=== PATIENT | female | born 1960 | race Hispanic/Latino ===

== ENCOUNTER 2018-09-14 02:35 | Inpatient (IN) | payer SELFPAY ==
[2018-09-14] MEDS ORDERED: Magnesium 2 GM/50 ML BAG (IN WATER) ONE (02:52)
[2018-09-14] MEDS ORDERED: Nitroglycerin 2% Ointment 1 INCH/1 GM Packet ONE (02:59)
[2018-09-14] MEDS ORDERED: Aspirin Chewable 81 MG TAB ONE (03:04)
[2018-09-14 03:09] LABS: Actual Bicarbonate (HCO3a) 21.5 mEq/L (22-28); Analyzer IN Cardio ER; Base Excess (BEa) -3.7 mEq/L (-2.0 to +3.0); CO2 Tension 39.4 mmHg (35.0-45.0); Calcium, Ionized 1.15 mmol/L (1.12-1.30); Carboxyhemoglobin (COHb) 0.3 gm% (0.0-3.0); Hemoglobin (Hb) 10.1 g/dL (12.0-16.0); O2 Tension (PaO2) 78.4 mmHg (> 80.0); Potassium - ABG Lab 2.54 mmol/L (3.70-5.30); pH, Arterial 7.35 (7.35-7.45)
[2018-09-14 03:10] LABS: Puncture Site RBA
[2018-09-14 03:28] LABS: ALT (SGPT) 32 U/L (8-55); AST (SGOT) 44 U/L (5-34); Albumin 3.1 g/dL (3.5-5.0); Alkaline Phosphatase 104 U/L (40-150); Anion Gap 17 mmol/L (10-20); BUN (Urea Nitrogen) 15 mg/dL (9.8-20.1); Bilirubin, Total 0.5 mg/dL (0.2-1.2); Calc. Creatinine Clearance 0 mL/min (70-130); Carbon Dioxide 20 mmol/L (22-29); Chloride 109 mmol/L (98-107); Estimated GFR-MDRD 46; Glucose 268 mg/dL (70-105); Lipase 13 U/L (8-78); Protein, Total 6.1 g/dL (6.0-8.3); Sodium 143 mmol/L (136-145)
[2018-09-14 03:43] LABS: Potassium 2.8 mmol/L (3.5-5.1)
[2018-09-14] MEDS ORDERED: Potassium Chloride 20 MEQ TAB ONE (04:01)
[2018-09-14 04:04] LABS: Hemoglobin 9.5 g/dL (12.0-16.0); Mean Corpuscular Hemoglobin 35.3 pg (27.0-31.0); Mean Platelet Volume 8.2 fL (7.4-10.4); Platelet Count 279 thou/uL (130-400); RBC Distribution Width 17.8 % (11.5-14.5); Red Blood Cell (RBC) Count 2.69 mill/uL (4.20-5.40); White Blood Cell (WBC) Count 11.1 thou/uL (4.8-10.8)
[2018-09-14 04:10] LABS: #Basophils 0.1 thou/uL (0.0-0.2); #Eosinphils 0.2 thou/uL (0.0-0.7); #Lymphocytes 4.9 thou/uL (1.20-3.40); #Monocytes 0.7 thou/uL (0.11-0.59); #Neutrophils 5.2 thou/uL (1.40-6.50); %Eosinophils 1.5 % (0.0-10.0); %Lymphocytes 44.2 % (21.0-51.0); %Monocytes 6.5 % (0.0-10.0); %Neutrophils 46.8 % (42.0-75.0); Anisocytosis SLIGHT = 6-15 cells (100X) (0-5/hpf); MDiff Complete? YES; Macrocytosis MODERATE=16-30 cells (100X) (0-5/hpf); Platelet Morphology Comment Appears Adequate
[2018-09-14] MEDS ORDERED: Potassium Chloride 40 MEQ in Sodium Chloride 0.9% 250 ML 250 ML IVPB SCH (04:15)
[2018-09-14] MEDS ORDERED: Acetaminophen 325 MG TAB PO PRN (05:26)
[2018-09-14] MEDS ORDERED: hydrALAZINE 20 MG/ML VIAL SLOW IVP PRN (05:28)
[2018-09-14] MEDS ORDERED: Nitroglycerin 2% Ointment 1 INCH/1 GM Packet TOP PRN (05:30)
[2018-09-14] MEDS ORDERED: Furosemide 40 MG/4 ML VIAL SLOW IVP SCH (05:30)
[2018-09-14] MEDS ORDERED: Furosemide 40 MG/4 ML VIAL ONE (05:31)
[2018-09-14] MEDS ORDERED: Dextrose 5% in Water 1,000 ML IV PRN (05:34)
[2018-09-14] MEDS ORDERED: Dextrose 50% Abboject 50 ML SYRINGE SLOW IVP PRN (05:34)
[2018-09-14 06:00] VITALS: BMI 34.2
[2018-09-14] MEDS ORDERED: Nitroglycerin 0.4 MG TAB (25 Tab Bottle) SL PRN (06:51)
[2018-09-14] MEDS ORDERED: Artificial Tears 18 DROP/0.9 ML EA EYE PRN (06:51)
[2018-09-14] MEDS ORDERED: Cepastat Lozenges 1 LOZ PO PRN (06:51)
[2018-09-14] MEDS ORDERED: Loperamide HCl 2 MG CAP PO PRN (06:51)
[2018-09-14] MEDS ORDERED: Ondansetron PF 4 MG/2 ML Vial IVP PRN (06:51)
[2018-09-14] MEDS ORDERED: Calcium Carbonate 500 MG ChewTAB PO PRN (06:51)
[2018-09-14] MEDS ORDERED: Ondansetron ODT 4 MG TAB PO PRN (06:51)
[2018-09-14] MEDS ORDERED: Loratadine 10 MG TAB PO PRN (06:51)
[2018-09-14] MEDS ORDERED: Zolpidem Tartrate 5 MG TAB PO PRN (06:51)
[2018-09-14] MEDS ORDERED: Senokot S 8.6-50 MG TAB PO PRN (06:51)
[2018-09-14] MEDS ORDERED: Eucerin (Mineral Oil/Petrolatum,White) 30 gm Jar TOP PRN (06:51)
[2018-09-14] MEDS ORDERED: Sodium Chloride 0.65% Nasal 44 ML BOT EA NARE PRN (06:51)
[2018-09-14] MEDS ORDERED: Diabetic Tussin 200 MG/10 ML UDCUP PO PRN (06:51)
[2018-09-14] MEDS: Carvedilol 3.125 MG TAB PO SCH ×2 (06:55→16:27)
--- NOTE | 2018-09-14 07:12 | HP ---
CHIEF COMPLAINT: Shortness of breath. HISTORY OF PRESENT ILLNESS: This patient is a 58-year-old female with a history of diabetes, hypertension, hyperlipidemia, and who was a former smoker, who reports a 2-week history of shortness of breath. The patient describes baseline shortness of breath, but more significantly dyspnea on exertion. Over the past 2 weeks, she has had orthopnea, edema, but no specific cough. She has been having some chest pains over the last week, but primarily associated with exertion and shortness of breath. She denies having any antecedent type of viral or febrile illness. She is unaware of having any prior history of heart problems or cardiac evaluation. She does report that she has significantly elevated blood pressure, although she does not have a PCP. She has been told in the past, her blood pressure was problematic. She indicates that it is not uncommon for her to have blood pressure readings over 200 at home. REVIEW OF SYSTEMS: She reports diminished appetite over the last 2 weeks along with these other symptoms. Other than that all systems were reviewed and all pertinent positives and negatives noted in the history of present illness. PAST MEDICAL HISTORY: Diabetes, hypertension, and hyperlipidemia. PAST SURGICAL HISTORY: Appendectomy and cholecystectomy. FAMILY HISTORY: She is unaware of any history related to her father. Her mother had diabetes. SOCIAL HISTORY: The patient smoked 2 packs of cigarettes per week, but quit 4 years ago. She denies alcohol or drugs. She is . She is full code and her would be her surrogate decision maker. CURRENT MEDICATIONS: 1. Metformin 500 mg b.i.d. 2. Amlodipine 10 mg 2 p.o. daily. 3. Hydrochlorothiazide 25 mg daily. 4. Simvastatin 40 mg daily. 5. Aspirin 81 mg daily. ALLERGIES: NONE. PHYSICAL EXAMINATION: VITAL SIGNS: Blood pressure in the emergency room initially was 196/104, at the time she left the emergency department was 139/90; pulse 86; respirations 30; temperature 97.6; and O2 saturation 100% on BiPAP, the patient was initially at 90 on BiPAP in the ED. GENERAL APPEARANCE: Age-appropriate female. She indicates she is feeling some better wearing the BiPAP. She is awake and alert, pleasant, conversant. HEENT: PERRL. No OP lesions. NECK: Supple and symmetric. HEART: Regular. No murmurs. Borderline tachycardic. LUNGS: Slightly diminished at the bases with no wheezes or rales noted. ABDOMEN: Soft, nontender, and nondistended. Positive bowel sounds. No masses. No organomegaly. EXTREMITIES: There is 1+ to 2+ pitting edema of the feet and ankles to the mid calf area. Pulses are diminished because of the edema present. NEUROLOGIC: She appears to be fully intact with spontaneous movement of all extremities cognitively appropriate. PSYCHOLOGICAL: The patient has normal affect and behavior. LABORATORY DATA: White count 11.1, hemoglobin 9.5, platelets 279, and MCV is 107 with significant macrocytosis. Sodium 143, potassium 2.8, chloride 109, CO2 is 20, BUN is 15, creatinine is 1.19, GFR is 46, glucose 268, anion gap is 17, AST 44, ALT is 32. BNP is 789.6. Troponin less than 0.01. Albumin 3.1. Chest x-ray shows pulmonary edema. CT of the chest shows pulmonary edema along with a significant bilateral pleural effusions. CT scan of the abdomen and pelvis primarily reveals significant atherosclerotic disease. Again official reads are pending on all of those. ABG shows a pH of 7.35, pCO2 of 39, and pO2 of 78.4 while on BiPAP. IMPRESSION AND PLAN: 1. Acute hypoxic respiratory failure requiring BiPAP. The patient appears to have bilateral pleural effusions and pulmonary edema as the underlying source. 2. Pulmonary edema appears to be exacerbation of new onset congestive heart failure, diuresing. 3. Bilateral pleural effusions, as above diuresing. 4. New onset congestive heart failure. The etiology is unclear, although suspect the patient likely has some type of hypertensive cardiomyopathy. We will obtain an echocardiogram and Cardiology consult. The patient certainly has significant risk factors for coronary artery disease including hypertension, hyperlipidemia, diabetes, and history of smoking. She also has significant evidence of atherosclerotic disease of the aorta down into the iliacs on her CT abdomen. We will go ahead and start the patient on nitroglycerin paste, give a dose of IV Lasix and start lisinopril and metformin. 5. Hypertension. The patient has severe hypertension. It was better in the ER, now it is back up as she is arriving in the [facility], may be simply the stress of getting her move from one location to the other. Nonetheless, giving IV hydralazine, starting carvedilol and lisinopril and giving Lasix now along with an inch of nitroglycerin paste. 6. Leukocytosis, mild, unclear etiology, may simply be some demargination due to the acute exacerbation of her respiratory situation. We will continue to monitor. 7. Macrocytic anemia. We will check B12 and folate levels. 8. Significant hypokalemia of unclear etiology. She has received 40 mg of IV and 40 mg p.o. initiated in the emergency department. We will continue to monitor closely. 9. Acute renal insufficiency. The patient does not have prior labs here for comparison. Her current GFR is at 46, putting her at stage 3 kidney disease, unclear how chronic this is, but suspect it likely is chronic given her diabetes and hypertension. We will monitor. 10. Diabetes mellitus. The patient's glucose was 268. It is unclear what her baseline status is. We will check A1c. 11. Elevated liver enzyme, likely due to some passive liver congestion or possibly fatty liver from diabetes. We will need to monitor that and potentially consider ultrasound if the labs do not significantly improve. 12. Hyperlipidemia. Continue with simvastatin. Job ID: [id number]
--- NOTE | 2018-09-14 07:24 | CT ---
PRELIMINARY REPORT/[facility]/EMERGENCY AFTER HOURS PROCEDURE: EXAM: CT Angiography Chest With Contrast EXAM DATE/TIME: 09/14/2018 3:43 AM CLINICAL HISTORY: 58 years old, female; Signs and symptoms; Shortness of breath; Patient HX: 58yo F with h/o dm and HTN presenting for sob/cervantes/ orthopnea that has been worsening over the past week. Patient states she has been having cp for the past 1-2 weeks as well. Cough started today. No h/o copd/asthma/ chf. TECHNIQUE: Imaging protocol: Axial computed tomographic angiography images of the chest with intravenous contrast using CT angiography protocol. 3D rendering: MIP reconstructed images were created and reviewed. COMPARISON: No relevant prior studies available. FINDINGS: Pulmonary arteries: No evidence of pulmonary embolism. Aorta: No acute findings. No aortic aneurysm or dissection. Lungs: Bilateral upper and middle lobe predominantly groundglass and lower lobe groundglass and consolidative airspace opacities. There is also septal and peribronchial thickening. Pleural space: Bilateral loculated pleural effusions and adjacent atelectasis. No pneumothorax. Heart: No significant cardiomegaly. Coronary calcifications. Small pericardial effusion. Lymph nodes: No significant adenopathy. Bones/joints: No acute fracture. Soft tissues: Edema. IMPRESSION: Bilateral airspace opacities could relate to pulmonary edema, pneumonia. Bilateral pleural effusions. Coronary calcifications. No evidence of pulmonary embolism. Other findings above. Thank you for allowing us to participate in the care of your patient. Dictated and Authenticated by: Carlos Silverman MD 09/14/2018 4:39 AM Central Time ([place] & [place]) FINAL REPORT EMERGENCY AFTER HOURS CT ANGIOGRAM CHEST WITH 3D RENDERING: Date: 09/14/18 Time: 0345 hours IMPRESSION: Moderate bilateral pleural effusions and fairly extensive diffuse bilateral alveolar airspace opaciti es, which could represent edema and/or bilateral pneumonia. No convincing CT evidence for acute pulmonary embol ism. This report is in agreement with a preliminary report given by Gonzalo. Transcribed Date/Time: 09/14/2018 7:57 AM
--- NOTE | 2018-09-14 07:30 | RAD ---
XR Chest 1 View Portable History: [Shortness of breath] Comparison: None Findings: Moderate effusions. Moderate pulmonary edema. No pneumothorax. No acute osseous abnormality. Heart size upper limits of normal. Large layering effusions. Impression: Large effusion, pulmonary edema and heart size at the upper limits of normal.
--- NOTE | 2018-09-14 07:37 | CT ---
PRELIMINARY REPORT/[facility]/EMERGENCY AFTER HOURS PROCEDURE: EXAM: CT Abdomen and Pelvis With Contrast EXAM DATE/TIME: 09/14/2018 3:43 AM CLINICAL HISTORY: 58 years old, female; Abdominal pain; Epigastric; Patient HX: 58yo F with h/o dm and HTN presenting for sob/cervantes/ orthopnea that has been worsening over the past week. Patient states she has been having cp for the past 1-2 weeks as well. Cough started today. No h/o copd/asthma/ chf. TECHNIQUE: Imaging protocol: Axial computed tomography images of the abdomen and pelvis with intravenous contrast. COMPARISON: No relevant prior studies available. FINDINGS: Lower chest: Refer to same day CT chest. ABDOMEN: Liver: No acute findings. No mass. Gallbladder and bile ducts: Status post cholecystectomy with central biliary prominence. Pancreas: No acute findings. No mass. No ductal dilation. Spleen: No acute findings. No mass. Adrenals: No acute findings. No mass. Kidneys and ureters: No mass. No hydronephrosis. Mild perinephric fluid. Stomach and bowel: Ascending, transverse and descending colon wall thickening/colitis. No evidence of bowel obstruction. Diverticulosis. Appendix: Appendix is not discretely visualized from the bowel loops within the right lower quadrant. PELVIS: Bladder: No acute findings. Reproductive: No acute findings. ABDOMEN and PELVIS: Intraperitoneal space: No free air. No significant fluid collection. Bones/joints: No acute fracture. Soft tissues: Edema. Vasculature: Atherosclerotic calcifications. No aortic aneurysm. Lymph nodes: No significant lymphadenopathy. IMPRESSION: Colitis. Thank you for allowing us to participate in the care of your patient. Dictated and Authenticated by: Carlos Silverman MD 09/14/2018 4:52 AM Central Time ([place] & [place]) FINAL REPORT EMERGENCY AFTER HOURS ABDOMEN AND PELVIC CT SCAN WITH IV CONTRAST: Date: 09/14/18 Time: 0346 hours IMPRESSION: There is colonic wall thickening, most marked in the right colon and transverse colon, evidence for n onspecific colitis. Diverticulosis without acute diverticulitis. Prominent bilateral pleural effusions and bibasilar pulmonary parenchymal changes. No abscess or abnormal fluid collection. Agree with preliminary report from [facility]. Transcribed Date/Time: 09/14/2018 8:01 AM
[2018-09-14] MEDS ORDERED: metFORMIN 500 MG TAB PO SCH (08:00)
[2018-09-14 08:49] LABS: #Lymphocytes 0.9 thou/uL (1.20-3.40); #Monocytes 0.2 thou/uL (0.11-0.59); #Neutrophils 10.6 thou/uL (1.40-6.50); %Basophils 0.3 % (0.0-1.0); %Eosinophils 0.3 % (0.0-10.0); %Lymphocytes 7.8 % (21.0-51.0); %Monocytes 1.8 % (0.0-10.0); %Neutrophils 89.9 % (42.0-75.0); Hemoglobin 9.4 g/dL (12.0-16.0); Mean Corpuscular HGB CONC 32.8 g/dL (32.0-36.0); Mean Corpuscular Hemoglobin 34.5 pg (27.0-31.0); Mean Platelet Volume 8.5 fL (7.4-10.4); Platelet Count 263 thou/uL (130-400); RBC Distribution Width 17.7 % (11.5-14.5); Red Blood Cell (RBC) Count 2.72 mill/uL (4.20-5.40); White Blood Cell (WBC) Count 11.8 thou/uL (4.8-10.8)
[2018-09-14 08:52] LABS: Prothrombin Time 13.3 SEC (12.0-14.7)
[2018-09-14 08:53] LABS: PTT 30.5 SEC (22.9-36.1)
[2018-09-14] MEDS ORDERED: Cyanocobalamin (Vitamin B-12) 1,000 MCG TAB PO SCH ×2 (09:00→11:16)
[2018-09-14] MEDS ORDERED: Lisinopril 5 MG TAB PO SCH (09:00)
[2018-09-14] MEDS ORDERED: Enoxaparin Sodium 40 MG/0.4 ML SYRINGE SC SCH ×2 (09:00)
[2018-09-14 09:03] LABS: Hemoglobin A1c 5.8 % (4.0-6.0)
[2018-09-14] MEDS: Aspirin 81 mg Enteric Coated Tablet PO SCH (09:17)
[2018-09-14] MEDS: Folic Acid 1 MG TAB PO SCH (09:17)
[2018-09-14] MEDS: Lisinopril 5 MG TAB PO SCH ×2 (09:17→19:57)
[2018-09-14 09:19] LABS: Troponin I 0.306 ng/mL (< 0.028)
[2018-09-14 09:39] LABS: Vitamin B12 Less than 109 pg/mL (211-911)
[2018-09-14] MEDS ORDERED: ISOVUE-370 76%-LOCM 1 ML ONE (10:44)
[2018-09-14 11:29] LABS: Troponin I 0.378 ng/mL (< 0.028)
[2018-09-14] MEDS ORDERED: Cyanocobalamin 1000 MCG/ML VIAL IM SCH (11:30)
[2018-09-14] MEDS: HumaLOG 300 UNITS/3 ML VIAL SC PRN (11:43)
--- NOTE | 2018-09-14 12:20 | PDOC.PN ---
- Subjective Encounter Start Date: 09/14/18 Encounter Start Time: 10:30 -: old records requested/rev Patient seen and examined. pt feels much better, less dyspnea, no chest pain. No overnight events - Objective Resuscitation Status - Order Detail: 09/14/18 05:26 Resuscitation Status Routine Resuscitation Status: FULL: Full Resuscitation MAR Reviewed: Yes Vital Signs & Weight: Vital Signs (12 hours) Temp Pulse Resp BP Pulse Ox 09/14/18 11:06 97.6 F 09/14/18 09:17 89 09/14/18 08:00 96 09/14/18 07:15 98.6 F 09/14/18 06:17 89 09/14/18 06:04 89 24 H 198/124 H 100 09/14/18 05:25 224/124 H Weight Admit Weight 158 lb 8 oz Weight 158 lb 8 oz Most Recent Monitor Data Heart Rate from ECG 83 NIBP 162/96 NIBP BP-Mean 118 Respiration from ECG 19 SpO2 98 I&O: 09/13/18 09/14/18 09/15/18 06:59 06:59 06:59 Output Total 700 Balance -700 Result Diagrams: 09/14/18 08:28 09/14/18 02:54 Additional Labs: Accuchecks 09/14/18 10:32 POC Glucose 264 H Radiology Reviewed by me: Yes EKG Reviewed by me: Yes Phys Exam - Physical Examination Constitutional: NAD HEENT: PERRLA, moist MMs, sclera anicteric Neck: no JVD, supple Respiratory: no wheezing, no rhonchi basal rales, reduced air entry Cardiovascular: RRR, no significant murmur, no rub Gastrointestinal: soft, non-tender, no distention, positive bowel sounds Musculoskeletal: no edema, pulses present Neurological: non-focal, normal sensation Lymphatic: no nodes Psychiatric: normal affect Skin: no rash, normal turgor Dx/Plan (1) Acute respiratory failure with hypoxemia Code(s): J96.01 - ACUTE RESPIRATORY FAILURE WITH HYPOXIA Status: Acute (2) Bilateral pleural effusion Code(s): J90 - PLEURAL EFFUSION, NOT ELSEWHERE CLASSIFIED Status: Acute (3) Hypokalemia Code(s): E87.6 - HYPOKALEMIA Status: Acute (4) New onset of congestive heart failure Code(s): I50.9 - HEART FAILURE, UNSPECIFIED Status: Acute (5) Pulmonary edema Code(s): J81.1 - CHRONIC PULMONARY EDEMA Status: Acute (6) Diabetes type 2, controlled Code(s): E11.9 - TYPE 2 DIABETES MELLITUS WITHOUT COMPLICATIONS Status: Chronic (7) Diverticulosis of colon Code(s): K57.30 - DVRTCLOS OF LG INT W/O PERFORATION OR ABSCESS W/O BLEEDING Status: Chronic (8) Dyslipidemia Code(s): E78.5 - HYPERLIPIDEMIA, UNSPECIFIED Status: Chronic (9) Hypertension Code(s): I10 - ESSENTIAL (PRIMARY) HYPERTENSION Status: Chronic (10) Macrocytic anemia Code(s): D53.9 - NUTRITIONAL ANEMIA, UNSPECIFIED Status: Chronic (11) Obesity (BMI 30.0-34.9) Code(s): E66.9 - OBESITY, UNSPECIFIED Status: Chronic - Plan cont current plan of care * continue lasix * add vitamin B12 and folic acid * cardiology consulted * medication reviewed as below * symptomatic treatment * continue low dose coreg, increase lisinopril * replace potassium, mag checked * will repeat labs tomorrow * echo pending * may need ischemic evaluation. Review of Systems - Review of Systems ENT: negative: Ear Pain, Ear Discharge, Nose Pain, Nose Discharge, Nose Congestion, Mouth Pain, Mouth Swelling, Throat Pain, Throat Swelling, Other Respiratory: SOB with Excertion. negative: Cough, Dry, Shortness of Breath, Hemoptysis, Pleuritic Pain, Sputum, Wheezing Cardiovascular: orthopnea. negative: chest pain, palpitations, paroxysmal nocturnal dyspnea, edema, light headedness, other Gastrointestinal: negative: Nausea, Vomiting, Abdominal Pain, Diarrhea, Constipation, Melena, Hematochezia, Other Genitourinary: negative: Dysuria, Frequency, Incontinence, Hematuria, Retention , Other Musculoskeletal: negative: Neck Pain, Shoulder Pain, Arm Pain, Back Pain, Hand Pain, Leg Pain, Foot Pain, Other Skin: negative: Rash, Lesions, Luis, Bruising, Other - Medications/Allergies Allergies/Adverse Reactions: Allergies Allergy/AdvReac Type Severity Reaction Status Date / Time No Known Allergies Allergy Verified 09/14/18 06:01 Medications: Current Medications Acetaminophen (Tylenol) 650 mg PO Q4H PRN PRN Reason: Headache/Fever/Mild Pain (1-3) Albuterol/Ipratropium (Duoneb) 3 ml NEB [id number] PRN PRN Reason: SOB &/or Wheezing Artificial Tears (Tears Naturale) 2 drop EA EYE PRN PRN PRN Reason: Dry Eyes Aspirin (Ecotrin) 81 mg PO DAILY [facility] Last Admin: 09/14/18 09:17 Dose: 81 mg Atorvastatin Calcium (Lipitor) 20 mg PO HS [facility] Calcium Carbonate (Tums) 1,000 mg PO Q4H PRN PRN Reason: Heartburn or Indigestion Carvedilol (Coreg) 3.125 mg PO BID-[facility] Last Admin: 09/14/18 06:55 Dose: 3.125 mg Cyanocobalamin (Vitamin B-12) 1,000 mcg IM NOW [facility] Stop: 09/14/18 14:00 Cyanocobalamin (Vitamin B-12) 2,000 mcg PO DAILY [facility] Dextrose/Water (Dextrose 50%) 25 gm SLOW IVP PRN PRN PRN Reason: Hypoglycemia Enoxaparin Sodium (Lovenox) 40 mg SC 0900 [facility] Last Admin: 09/14/18 09:18 Dose: 40 mg Folic Acid (Folvite) 1 mg PO DAILY [facility] Last Admin: 09/14/18 09:17 Dose: 1 mg Furosemide (Lasix) 40 mg SLOW IVP 0600,1400 [facility] Glucagon (Glucagon) 1 mg IM PRN PRN PRN Reason: Hypoglycemia Guaifenesin (Robitussin Sf) 200 mg PO Q4H PRN PRN Reason: Cough Hydralazine HCl (Apresoline) 10 mg SLOW IVP Q2H PRN PRN Reason: Hypertension Dextrose/Water (D5w) 1,000 mls @ 0 mls/hr IV .Q0M PRN PRN Reason: Hypoglycemia Insulin Human Lispro (Humalog) 0 units SC .MILD SLIDING SCALE PRN PRN Reason: Mild Correctional Scale Last Admin: 09/14/18 11:43 Dose: 4 unit Lisinopril (Zestril) 5 mg PO BID [facility] Last Admin: 09/14/18 09:17 Dose: 5 mg Loperamide HCl (Imodium) 2 mg PO PRN PRN PRN Reason: Diarrhea/Loose Stools Loratadine (Claritin) 10 mg PO DAILYPRN PRN PRN Reason: Sinus Symptoms Mineral Oil/White Petrolatum (Eucerin Cream) 0 gm TOP BIDPRN PRN PRN Reason: Dry Skin Nitroglycerin (Nitro-Bid 2% Ointment) 1 inch TOP 0300,1500 [facility] Nitroglycerin (Nitrostat) 0.4 mg SL Q5MIN PRN PRN Reason: Chest Pain Ondansetron HCl (Zofran) 4 mg IVP Q6H PRN PRN Reason: Nausea/Vomiting Ondansetron HCl (Zofran Odt) 4 mg PO Q6H PRN PRN Reason: Nausea/Vomiting Senna/Docusate Sodium (Senokot S) 2 tab PO BID PRN PRN Reason: Constipation Sodium Chloride ([place] Nasal [place] 0.65%) 0 ml EA NARE QIDPRN PRN PRN Reason: Nasal Congestion Sodium Chloride (Flush - Normal Saline) 10 ml IVF Q12HR [facility] Last Admin: 09/14/18 09:18 Dose: 10 ml Sodium Chloride (Flush - Normal Saline) 10 ml IVF PRN PRN PRN Reason: Saline Flush Throat Lozenges (Cepastat Lozenges) 1 edgar PO Q2H PRN PRN Reason: Sore Throat Zolpidem Tartrate (Ambien) 5 mg PO HSPRN PRN PRN Reason: Insomnia
[2018-09-14] MEDS: Furosemide 40 MG/4 ML VIAL SLOW IVP SCH (13:46)
[2018-09-14] MEDS: Nitroglycerin 2% Ointment 1 INCH/1 GM Packet TOP SCH (16:28)
[2018-09-14] MEDS ORDERED: Lidocaine 2% PF 100 mg/5 ml Syringe IVP PRN (17:37)
--- NOTE | 2018-09-14 19:27 | CON ---
DATE OF CONSULTATION: 09/14/2018 HISTORY OF PRESENT ILLNESS: Ms. Hogan is a pleasant female, who was admitted early this morning with shortness of breath. She says she feels 100% better now. I have seen her because of admission to the intermediate care unit. PAST MEDICAL HISTORY: Remarkable for diabetes, hypertension, lipid disorder. She is a former smoker, but has never been told she has COPD. She has never had heart failure before. She does have poorly controlled hypertension and admits her blood pressure has not been controlled lately. She says that her shortness of breath started about 3 days ago and progressed to a point, where she came to the emergency room. FAMILY HISTORY: Negative for lung disease in early age. It is positive for diabetes. SOCIAL HISTORY: She is currently a nonsmoker. She smoked less than half pack a day for at least 30 years. She is a nondrinker. She does not use drugs. MEDICATIONS: Prior to admission, she was on; 1. Metformin. 2. Amlodipine. 3. Hydrochlorothiazide. 4. Simvastatin. 5. Aspirin. ALLERGIES: SHE HAS NO REPORTED DRUG ALLERGIES. REVIEW OF SYSTEMS: 10 point review of systems completed, otherwise negative. PHYSICAL EXAMINATION: GENERAL: She is very pleasant, cooperative, actually able to lie almost flat in bed now. VITAL SIGNS: She is afebrile. Heart rate is 89, respiratory rate is 20, blood pressure 162/96. HEENT: Pupils are equal. Sclerae are anicteric. NECK: Supple. No lymphadenopathy. Trachea is in midline. Carotids are symmetrical. LUNGS: Clear. HEART: Regular rhythm, S1 and S2 are normal. ABDOMEN: Soft and nontender. EXTREMITIES: Without clubbing, cyanosis, or edema. NEUROLOGIC: Grossly nonfocal. LABORATORY DATA: White count 11.8, hemoglobin 9.4, platelets 263. BNP was 789. Sodium 143, potassium 2.8, chloride 109, bicarb 20, BUN 15, and creatinine 1.19. Echocardiogram is pending. She had a chest x-ray and chest CT done. She also had an abdomen and pelvis CT as well. CT pulmonary angiogram showed pulmonary edema and bilateral effusions. Abdomen and pelvis CT, which was done for reported epigastric pain, showed findings suggestive of colitis. Right colon had wall thickening as did the transverse colon. Diverticulosis was also seen. IMPRESSION: New onset congestive heart failure. Echocardiogram is pending. She clinically does not appear to have a myocardial infarction. Her troponins were initially 0.010. This morning, her troponin was 0.306. She clinically is improving with an overnight diuresis of 700 mL. We will follow with the other physicians caring for. TIME SPENT: 50-minute consult, with greater than 50% of the time spent on the unit coordinating care. Job ID: [id number] MTDD
[2018-09-14] MEDS: Atorvastatin Calcium 20 MG TAB PO SCH (19:57)
--- NOTE | 2018-09-14 22:11 | CON ---
DATE OF CONSULTATION: 09/14/2018 INDICATION FOR CONSULTATION: A 58-year-old female with multiple risk factors, coronary artery disease, presented with shortness of breath and congestive heart failure symptoms, and also has abnormal cardiac enzymes. I was asked to see her in consultation. HISTORY OF PRESENT ILLNESS: She is a very pleasant 58-year-old female who for the last two weeks has been short of breath. She said that she also last week had some chest pain, mainly on the right side and the midsternal area. She complained of some dizziness. She does have a history of COPD. She apparently ran out of her medicines about two months ago. She recently moved back to [place] from [place] and has not been seen by her primary care physician thus far. She has had no previous cardiac history that she is aware of. However, she does have hypertension, hypercholesterolemia, diabetes, and history of tobacco abuse. She stopped smoking about 4 years ago. Previously smoked about 2 packs in a week. She denies any previous cardiac history. PAST MEDICAL HISTORY: Significant for cholecystectomy, appendectomy, hypertension, hypercholesterolemia, and diabetes. SOCIAL HISTORY: She is . She stopped smoking 4 years ago. She has no significant alcohol use. FAMILY HISTORY: Noncontributory. MEDICATIONS PRIOR TO ADMISSION: Included: 1. Metformin. 2. Amlodipine. 3. Hydrochlorothiazide. 4. Simvastatin. 5. Aspirin. 6. Hydrochlorothiazide 25 mg once a day. 7. Amlodipine 10 mg two tablets a day. 8. Metformin, which was 500 mg one b.i.d. ALLERGIES: NONE. MEDICATIONS AT THIS TIME: Include: 1. Aspirin. 2. Atorvastatin. 3. Coreg. 4. Lovenox for DVT prophylaxis. 5. Furosemide 40 mg once a day. 6. Lisinopril 5 mg b.i.d. 7. Nitroglycerin paste 1 inch. 8. She has other p.r.n. medications. REVIEW OF SYSTEMS: She wears glasses. She continued to smoke until about 4 years ago. She complains of occasional diarrhea. Otherwise, her 12-point review of systems is unremarkable. PHYSICAL EXAMINATION: GENERAL: Reveals a well-developed, well-nourished female, in no acute distress. VITAL SIGNS: Her blood pressure is elevated at 198/124, respiratory rate 24, heart rates in the 80s to 90s, shows sinus rhythm. She is afebrile. HEENT: Shows head to be normocephalic and atraumatic. Carotid pulses are present without any bruits. CHEST: Actually clear to auscultation, I did not find any significant rales, rhonchi, or wheezing. CARDIOVASCULAR: Reveals a regular rate and rhythm at this time. She has normal S1and S2. She has a soft systolic murmur at the lower sternal border. ABDOMEN: Obese. Positive bowel sounds are present. No organomegaly or masses are noted. Femoral pulses are present. EXTREMITIES: No clubbing, cyanosis, or edema. Pedal pulses are slightly decreased but are present. NEUROLOGICAL: She appears to be fully intact. SKIN: Warm and dry. LABORATORY DATA: Shows a potassium of 2.8, which has some replacement. We will repeat this and determine whether not she needs more potassium. Creatinine is 1.19. Blood sugar was 268. Troponin I was 0.30, increased up to 0.37. Her BNP is 789. Hemoglobin is 9.4 with hematocrit of 28.7, and platelet count was 263,000. EKG shows a normal sinus rhythm, decreased R-wave progression in V1 through V3 compatible with possible old anterior myocardial infarction. There were no acute ST-segment changes noted. IMPRESSION AND PLAN: 1. Acute congestive heart failure exacerbation, most likely systolic in nature. Her echocardiogram did show mild decrease in left ventricular systolic function. Ejection fraction is estimated approximately at 45% to 50%. This may be underlying ischemic cardiomyopathy. I would agree with diuretics at this time. We will need to replace potassium. 2. History of tobacco abuse. Hopefully, she will remain abstinent. She has not smoked for about 4 years. 3. Hypertension. This is very poorly controlled. We will need to adjust her medications. We will consider adding nitrates at this time. 4. Hypercholesterolemia. She is on a statin. We will continue this medication. 5. Diabetes. This will be dealt with by the primary care service. 6. Abnormal cardiac enzymes in a patient with multiple risk factors, coronary artery disease and chest pain with some shortness of breath. I would advise her to undergo cardiac catheterization as a definitive evaluation for possible underlying coronary artery disease. I have explained the procedure and the risks to her to include bleeding, infection, possible myocardial infarction, cerebrovascular accident, renal insufficiency, allergic contrast reaction and the possibility of . She understands and agrees to proceed. We will plan for cardiac catheterization tomorrow morning. In the interim, we will try to control her blood pressure as well as also monitor electrolytes and stabilize her potassium as well as the blood sugars. Please note that she does have a type 2 myocardial infarction with elevated cardiac enzymes, most likely ischemic in nature. Job ID: [id number]
[2018-09-15] MEDS: Nitroglycerin 2% Ointment 1 INCH/1 GM Packet TOP SCH ×2 (04:15→16:05)
[2018-09-15 04:58] LABS: #Basophils 0.1 thou/uL (0.0-0.2); #Lymphocytes 2.4 thou/uL (1.20-3.40); #Neutrophils 10.1 thou/uL (1.40-6.50); %Basophils 0.5 % (0.0-1.0); %Eosinophils 0.1 % (0.0-10.0); %Lymphocytes 17.8 % (21.0-51.0); %Monocytes 7.2 % (0.0-10.0); %Neutrophils 74.4 % (42.0-75.0); Hemoglobin 8.4 g/dL (12.0-16.0); Mean Corpuscular HGB CONC 32.9 g/dL (32.0-36.0); Mean Corpuscular Hemoglobin 35.6 pg (27.0-31.0); Mean Platelet Volume 8.6 fL (7.4-10.4); Platelet Count 251 thou/uL (130-400); RBC Distribution Width 17.8 % (11.5-14.5); Red Blood Cell (RBC) Count 2.36 mill/uL (4.20-5.40); White Blood Cell (WBC) Count 13.5 thou/uL (4.8-10.8)
[2018-09-15 05:17] LABS: Anion Gap 12 mmol/L (10-20); BUN (Urea Nitrogen) 19 mg/dL (9.8-20.1); Calc. Creatinine Clearance 54 mL/min (70-130); Calcium 8.7 mg/dL (7.8-10.44); Carbon Dioxide 25 mmol/L (22-29); Cardiac Risk 5.4 (Less than 4.5); Chloride 109 mmol/L (98-107); Cholesterol 266 mg/dl (< 200 Desired); Estimated GFR-MDRD 44; Glucose 128 mg/dL (70-105); HDL Cholesterol 49 mg/dL (>60 Neg Risk); LDL Cholesterol, Calculated 196 mg/dL; Magnesium 2.1 mg/dL (1.6-2.6); Potassium 3.9 mmol/L (3.5-5.1); Sodium 142 mmol/L (136-145); Triglycerides 106 mg/dL (Less than 150); Uric Acid 7.9 mg/dL (2.6-6.0)
[2018-09-15] MEDS: Furosemide 40 MG/4 ML VIAL SLOW IVP SCH ×2 (05:25→13:52)
[2018-09-15] MEDS: Lisinopril 5 MG TAB PO SCH ×2 (05:25→20:31)
[2018-09-15] MEDS: Carvedilol 3.125 MG TAB PO SCH ×2 (05:26→16:05)
[2018-09-15] MEDS: Folic Acid 1 MG TAB PO SCH (05:26)
[2018-09-15] MEDS: Cyanocobalamin (Vitamin B-12) 1,000 MCG TAB PO SCH (05:26)
[2018-09-15] MEDS: Aspirin 81 mg Enteric Coated Tablet PO SCH (05:29)
--- NOTE | 2018-09-15 09:48 | PRG ---
DATE OF SERVICE: 09/15/2018 SUBJECTIVE: Ms. Hogan is in no distress. She says she feels 100% better. She is tentatively on the schedule for heart catheterization today. OBJECTIVE: VITAL SIGNS: She is afebrile, heart rate 70, oximetry is 100, respiratory rate 18, blood pressure 175/71. LUNGS: Remarkable for very fine crackles at both bases. HEART: Regular rhythm. ABDOMEN: Soft. LABORATORY DATA: White count 13.5, hemoglobin 8.4, platelets 251. Sodium 142, potassium 3.9, chloride 109, bicarb 25, BUN 19, and creatinine 1.25. IMPRESSION: 1. Congestive heart failure with an ejection fraction of 45% to 50%, tentatively on the schedule for cardiac catheterization. 2. Hypertension, poorly controlled. 3. Anemia with an elevated mean corpuscular volume. 4. Acute on chronic renal dysfunction status post two CAT scans in the emergency room with contrast. 5. Mild elevation of troponin. 6. Diabetes. Her renal function, we will have to continue to be monitored closely. Overall, she clinically looks much better than yesterday. Job ID: [id number]
--- NOTE | 2018-09-15 11:39 | PDOC.PN ---
- Subjective Encounter Start Date: 09/15/18 Encounter Start Time: 10:30 Patient seen and examined. pt feels better, denies chest pain, less dyspnea, No new complaints. No overnight events - Objective Resuscitation Status - Order Detail: 09/14/18 05:26 Resuscitation Status Routine Resuscitation Status: FULL: Full Resuscitation MAR Reviewed: Yes Vital Signs & Weight: Vital Signs (12 hours) Temp Pulse Pulse Ox 09/15/18 11:27 97.7 F 09/15/18 08:00 100 09/15/18 07:11 98.5 F 09/15/18 05:25 89 09/15/18 03:28 99.0 F Weight Admit Weight 158 lb 8 oz Weight 153 lb 8 oz Most Recent Monitor Data Heart Rate from ECG 68 NIBP 174/81 NIBP BP-Mean 112 Respiration from ECG 22 SpO2 100 I&O: 09/14/18 09/15/18 09/16/18 06:59 06:59 06:59 Intake Total 960 Output Total 1950 Balance -990 Result Diagrams: 09/15/18 04:21 09/15/18 04:21 Additional Labs: Accuchecks 09/15/18 09/14/18 09/14/18 05:30 19:56 16:30 POC Glucose 156 H 153 H 149 H EKG Reviewed by me: Yes Phys Exam - Physical Examination Constitutional: NAD HEENT: PERRLA, moist MMs, sclera anicteric Neck: no JVD, supple Respiratory: no wheezing, no rhonchi reduced air entry at base, Cardiovascular: RRR, no significant murmur, no rub Gastrointestinal: soft, non-tender, no distention, positive bowel sounds Musculoskeletal: no edema, pulses present Neurological: non-focal, normal sensation Lymphatic: no nodes Psychiatric: normal affect Skin: no rash, normal turgor Dx/Plan (1) Acute respiratory failure with hypoxemia Code(s): J96.01 - ACUTE RESPIRATORY FAILURE WITH HYPOXIA Status: Acute (2) Bilateral pleural effusion Code(s): J90 - PLEURAL EFFUSION, NOT ELSEWHERE CLASSIFIED Status: Acute (3) Hypokalemia Code(s): E87.6 - HYPOKALEMIA Status: Acute (4) New onset of congestive heart failure Code(s): I50.9 - HEART FAILURE, UNSPECIFIED Status: Acute (5) Pulmonary edema Code(s): J81.1 - CHRONIC PULMONARY EDEMA Status: Acute (6) Diabetes type 2, controlled Code(s): E11.9 - TYPE 2 DIABETES MELLITUS WITHOUT COMPLICATIONS Status: Chronic (7) Diverticulosis of colon Code(s): K57.30 - DVRTCLOS OF LG INT W/O PERFORATION OR ABSCESS W/O BLEEDING Status: Chronic (8) Dyslipidemia Code(s): E78.5 - HYPERLIPIDEMIA, UNSPECIFIED Status: Chronic (9) Hypertension Code(s): I10 - ESSENTIAL (PRIMARY) HYPERTENSION Status: Chronic (10) Macrocytic anemia Code(s): D53.9 - NUTRITIONAL ANEMIA, UNSPECIFIED Status: Chronic (11) Obesity (BMI 30.0-34.9) Code(s): E66.9 - OBESITY, UNSPECIFIED Status: Chronic - Plan cont current plan of care, plan discussed w/ family * medication reviewed as below * symptomatic treatment * continue lasix * cardiology planning to do cardiac cath * today transfer to tele * wean off oxygen as tolerated * continue cardiac rehab * discussed with family and updated test result. Review of Systems - Review of Systems ENT: negative: Ear Pain, Ear Discharge, Nose Pain, Nose Discharge, Nose Congestion, Mouth Pain, Mouth Swelling, Throat Pain, Throat Swelling, Other Respiratory: negative: Cough, Dry, Shortness of Breath, Hemoptysis, SOB with Excertion, Pleuritic Pain, Sputum, Wheezing Cardiovascular: negative: chest pain, palpitations, orthopnea, paroxysmal nocturnal dyspnea, edema, light headedness, other Gastrointestinal: negative: Nausea, Vomiting, Abdominal Pain, Diarrhea, Constipation, Melena, Hematochezia, Other Genitourinary: negative: Dysuria, Frequency, Incontinence, Hematuria, Retention , Other Musculoskeletal: negative: Neck Pain, Shoulder Pain, Arm Pain, Back Pain, Hand Pain, Leg Pain, Foot Pain, Other - Medications/Allergies Allergies/Adverse Reactions: Allergies Allergy/AdvReac Type Severity Reaction Status Date / Time No Known Allergies Allergy Verified 09/14/18 06:01 Medications: Current Medications Acetaminophen (Tylenol) 650 mg PO Q4H PRN PRN Reason: Headache/Fever/Mild Pain (1-3) Last Admin: 09/14/18 13:09 Dose: 650 mg Albuterol/Ipratropium (Duoneb) 3 ml NEB [id number] PRN PRN Reason: SOB &/or Wheezing Artificial Tears (Tears Naturale) 2 drop EA EYE PRN PRN PRN Reason: Dry Eyes Aspirin (Ecotrin) 81 mg PO DAILY [facility] Last Admin: 09/15/18 05:29 Dose: 81 mg Atorvastatin Calcium (Lipitor) 20 mg PO HS [facility] Last Admin: 09/14/18 19:57 Dose: 20 mg Calcium Carbonate (Tums) 1,000 mg PO Q4H PRN PRN Reason: Heartburn or Indigestion Carvedilol (Coreg) 3.125 mg PO BID-[facility] Last Admin: 09/15/18 05:26 Dose: 3.125 mg Cyanocobalamin (Vitamin B-12) 2,000 mcg PO DAILY [facility] Last Admin: 09/15/18 05:26 Dose: 2,000 mcg Dextrose/Water (Dextrose 50%) 25 gm SLOW IVP PRN PRN PRN Reason: Hypoglycemia Folic Acid (Folvite) 1 mg PO DAILY [facility] Last Admin: 09/15/18 05:26 Dose: 1 mg Furosemide (Lasix) 40 mg SLOW IVP 0600,1400 [facility] Last Admin: 09/15/18 05:25 Dose: 40 mg Glucagon (Glucagon) 1 mg IM PRN PRN PRN Reason: Hypoglycemia Guaifenesin (Robitussin Sf) 200 mg PO Q4H PRN PRN Reason: Cough Hydralazine HCl (Apresoline) 10 mg SLOW IVP Q2H PRN PRN Reason: Hypertension Dextrose/Water (D5w) 1,000 mls @ 0 mls/hr IV .Q0M PRN PRN Reason: Hypoglycemia Insulin Human Lispro (Humalog) 0 units SC .MILD SLIDING SCALE PRN PRN Reason: Mild Correctional Scale Last Admin: 09/14/18 11:43 Dose: 4 unit Lidocaine HCl (Xylocaine Syringe) 50 mg IVP ONE PRN PRN Reason: V-TACH WITH AICD DEPLOYED Stop: 09/16/18 17:38 Lisinopril (Zestril) 5 mg PO BID [facility] Last Admin: 09/15/18 05:25 Dose: 5 mg Loperamide HCl (Imodium) 2 mg PO PRN PRN PRN Reason: Diarrhea/Loose Stools Loratadine (Claritin) 10 mg PO DAILYPRN PRN PRN Reason: Sinus Symptoms Mineral Oil/White Petrolatum (Eucerin Cream) 0 gm TOP BIDPRN PRN PRN Reason: Dry Skin Miscellaneous Information (Communication Order-Pharmacy) 0 each FS 1530 [facility] Nitroglycerin (Nitro-Bid 2% Ointment) 1 inch TOP 0300,1500 [facility] Last Admin: 09/15/18 04:15 Dose: 1 inch Nitroglycerin (Nitrostat) 0.4 mg SL Q5MIN PRN PRN Reason: Chest Pain Ondansetron HCl (Zofran) 4 mg IVP Q6H PRN PRN Reason: Nausea/Vomiting Ondansetron HCl (Zofran Odt) 4 mg PO Q6H PRN PRN Reason: Nausea/Vomiting Senna/Docusate Sodium (Senokot S) 2 tab PO BID PRN PRN Reason: Constipation Sodium Chloride ([place] Nasal [place] 0.65%) 0 ml EA NARE QIDPRN PRN PRN Reason: Nasal Congestion Sodium Chloride (Flush - Normal Saline) 10 ml IVF Q12HR [facility] Last Admin: 09/15/18 10:40 Dose: 10 ml Sodium Chloride (Flush - Normal Saline) 10 ml IVF PRN PRN PRN Reason: Saline Flush Throat Lozenges (Cepastat Lozenges) 1 edgar PO Q2H PRN PRN Reason: Sore Throat Zolpidem Tartrate (Ambien) 5 mg PO HSPRN PRN PRN Reason: Insomnia
--- NOTE | 2018-09-15 12:51 | PDOC.CTH ---
Cardiology Progress Note - Subjective The pt seen and examined. No cardiac complaints. No overnight events. - Objective Vital Signs Temp Pulse Pulse Ox 09/15/18 11:27 97.7 F 09/15/18 08:00 100 09/15/18 07:11 98.5 F 09/15/18 05:25 89 09/15/18 03:28 99.0 F Admit Weight 158 lb 8 oz Weight 153 lb 8 oz 09/14/18 09/15/18 09/16/18 06:59 06:59 06:59 Intake Total 960 Output Total 1950 Balance -990 - Physical Examination General/Neuro: alert & oriented x3 Neck: no JVD present Lungs: other: (diminished at bases) Heart: RRR Abdomen: soft Extremities: other: (No edema) - Telemetry Telemetry Rhythm: SR - Labs Result Diagrams: 09/15/18 04:21 09/15/18 04:21 Troponin/CKMB Troponin I 0.378 ng/mL (< 0.028) H* 09/14/18 10:42 - Assessment/Plan 1. Acute on Chronic Systolic HF with EF 545-50% - stable with Lasix 40mg IV BID , Coreg 3.125mg BID, and Lisinopril 5mg BID 2. HTN - Will start Norvasc 5mg BID from today 3. DANIEL - unchanged; may start NS IV prior to Cath? 4. Anemia - 5. DM type 2 - 6. COPD - stable with 2LNC 7. Hyperlipidemia - On statin 8. Ex-smoker quit in 2014 - 9. Bilat pleural effusion - On Lasix MAR reviewed * Echo on 09/14/2018 with EF 45-50%, mod-severe LA, mild MR and TR, and Lt plural effusion Pt. seen and eval. by me. I agree with the A/P by the BASE DRAW OPERATOR. the H/H has decreased. This should be addressed prior to cardiac cath unless the cath becomes an emergency. With the additional IV fluids prior to cath the H/H will drop further.it is not safe to perform the cardiac cath with a Hgb. < 10.0. Chest clear. RRR. Review of Systems - Review of Systems Constitutional: reports: no symptoms reported EENTM: reports: no symptoms reported Respiratory: reports: no symptoms reported Cardiac (ROS): reports: no symptoms reported ABD/GI: reports: no symptoms reported : reports: no symptoms reported Musculoskeletal: reports: no symptoms reported
[2018-09-15] MEDS: hydrALAZINE 20 MG/ML VIAL SLOW IVP PRN (13:11)
[2018-09-15] MEDS: Communication Order-Pharmacy FS SCH ×2 (20:20→20:30)
[2018-09-15] MEDS: Amlodipine 5 MG TAB PO SCH (20:31)
[2018-09-15] MEDS: Atorvastatin Calcium 20 MG TAB PO SCH (20:32)
[2018-09-15] MEDS: HumaLOG 300 UNITS/3 ML VIAL SC PRN (20:32)
[2018-09-16] MEDS: Nitroglycerin 2% Ointment 1 INCH/1 GM Packet TOP SCH ×2 (03:09→14:29)
[2018-09-16] MEDS: Furosemide 40 MG/4 ML VIAL SLOW IVP SCH ×2 (05:34→14:29)
[2018-09-16] MEDS: hydrALAZINE 20 MG/ML VIAL SLOW IVP PRN (07:21)
[2018-09-16] MEDS ORDERED: Lisinopril 5 MG TAB PO SCH (07:37)
[2018-09-16] MEDS ORDERED: Carvedilol 3.125 MG TAB PO SCH (07:38)
--- NOTE | 2018-09-16 09:50 | EKG ---
Test Reason : Blood Pressure : / mmHG Vent. Rate : 101 BPM Atrial Rate : 101 BPM P-R Int : 122 ms QRS Dur : 076 ms QT Int : 356 ms P-R-T Axes : 067 052 095 degrees QTc Int : 461 ms Sinus tachycardia Possible Anterior infarct , age undetermined Abnormal ECG Confirmed by DELGADO OCHOA DO ([id number]), content editor JASMIN JACQUES ([id number]) on 09/16/2018 9:50:20 AM Referred By: Confirmed By:DELGADO OCHOA DO
[2018-09-16] MEDS: Amlodipine 5 MG TAB PO SCH ×2 (10:20→20:54)
[2018-09-16] MEDS: Aspirin 81 mg Enteric Coated Tablet PO SCH (10:20)
[2018-09-16] MEDS: Carvedilol 6.25 MG TAB PO SCH ×2 (10:20→16:38)
[2018-09-16] MEDS: Lisinopril 10 MG TAB PO SCH ×2 (10:21→20:54)
[2018-09-16] MEDS: Folic Acid 1 MG TAB PO SCH (10:21)
[2018-09-16] MEDS: Cyanocobalamin (Vitamin B-12) 1,000 MCG TAB PO SCH (10:29)
--- NOTE | 2018-09-16 11:14 | PDOC.PN ---
- Subjective Encounter Start Date: 09/16/18 Encounter Start Time: 10:15 Patient seen and examined. No overnight events, now she is off oxygen she has some vague epigastric discomfort, feels weak, no opal - Objective Resuscitation Status - Order Detail: 09/14/18 05:26 Resuscitation Status Routine Resuscitation Status: FULL: Full Resuscitation MAR Reviewed: Yes Vital Signs & Weight: Vital Signs (12 hours) Temp Pulse Pulse Resp BP BP 09/16/18 10:44 98.8 F 76 16 139/75 09/16/18 10:21 145/77 H 09/16/18 10:20 74 145/77 H 09/16/18 10:17 98.4 F 09/16/18 07:21 71 186/89 H 09/16/18 07:00 98.2 F 09/16/18 03:23 97.3 F L 09/15/18 23:24 98.9 F Weight Admit Weight 158 lb 8 oz Weight 153 lb 11.2 oz Most Recent Monitor Data Heart Rate from ECG 72 NIBP 176/99 NIBP BP-Mean 124 Respiration from ECG 18 SpO2 99 I&O: 09/15/18 09/16/18 09/17/18 06:59 06:59 06:59 Intake Total 960 1140 0 Output Total 1950 1500 Balance -990 -360 0 Result Diagrams: 09/15/18 04:21 09/15/18 04:21 Additional Labs: Accuchecks 09/16/18 09/16/18 09/15/18 10:06 05:42 19:50 POC Glucose 212 H 117 H 286 H 09/15/18 09/15/18 16:49 10:27 POC Glucose 152 H 145 H EKG Reviewed by me: Yes (nsr) Phys Exam - Physical Examination Constitutional: NAD HEENT: PERRLA, moist MMs, sclera anicteric Neck: no JVD, supple Respiratory: no wheezing, no rales, no rhonchi Cardiovascular: RRR, no significant murmur, no rub Gastrointestinal: soft, non-tender, no distention, positive bowel sounds Musculoskeletal: no edema, pulses present Neurological: non-focal, normal sensation, moves all 4 limbs Lymphatic: no nodes Psychiatric: normal affect, A&O x 3 Skin: no rash, normal turgor Dx/Plan (1) Acute respiratory failure with hypoxemia Code(s): J96.01 - ACUTE RESPIRATORY FAILURE WITH HYPOXIA Status: Resolved (2) Bilateral pleural effusion Code(s): J90 - PLEURAL EFFUSION, NOT ELSEWHERE CLASSIFIED Status: Acute Comment: Improving (3) Hypokalemia Code(s): E87.6 - HYPOKALEMIA Status: Resolved (4) New onset of congestive heart failure Code(s): I50.9 - HEART FAILURE, UNSPECIFIED Status: Acute Comment: systolic , stage C (5) Pulmonary edema Code(s): J81.1 - CHRONIC PULMONARY EDEMA Status: Resolved Qualifiers: Chronicity: acute Qualified Code(s): J81.0 - Acute pulmonary edema (6) Diabetes type 2, controlled Code(s): E11.9 - TYPE 2 DIABETES MELLITUS WITHOUT COMPLICATIONS Status: Chronic (7) Diverticulosis of colon Code(s): K57.30 - DVRTCLOS OF LG INT W/O PERFORATION OR ABSCESS W/O BLEEDING Status: Chronic (8) Dyslipidemia Code(s): E78.5 - HYPERLIPIDEMIA, UNSPECIFIED Status: Chronic (9) Hypertension Code(s): I10 - ESSENTIAL (PRIMARY) HYPERTENSION Status: Chronic (10) Macrocytic anemia Code(s): D53.9 - NUTRITIONAL ANEMIA, UNSPECIFIED Status: Chronic Comment: with B12 defi (11) Obesity (BMI 30.0-34.9) Code(s): E66.9 - OBESITY, UNSPECIFIED Status: Chronic (12) Vitamin B12 deficiency Code(s): E53.8 - DEFICIENCY OF OTHER SPECIFIED B GROUP VITAMINS Status: Acute - Plan cont current plan of care, plan discussed w/ family * will transfuse 1 unit of PRBC for symptomatic anemia * will check FOBT * most likely related with B12 defi but blood loss needs to be excluded. * will see if GI needs to be involved for procedure * continue lasix * transfer to tele * cardiology following * changed lisinopril 10 mg po bid, coreg 6.25 mg po bid * add protonix 40 mg po daily Review of Systems - Review of Systems Eyes: negative: Pain, Vision Change, Conjunctivae Inflammation, Eyelid Inflammation, Redness, Other ENT: negative: Ear Pain, Ear Discharge, Nose Pain, Nose Discharge, Nose Congestion, Mouth Pain, Mouth Swelling, Throat Pain, Throat Swelling, Other Respiratory: negative: Cough, Dry, Shortness of Breath, Hemoptysis, SOB with Excertion, Pleuritic Pain, Sputum, Wheezing Cardiovascular: negative: chest pain, palpitations, orthopnea, paroxysmal nocturnal dyspnea, edema, light headedness, other Gastrointestinal: Abdominal Pain. negative: Nausea, Vomiting, Diarrhea, Constipation, Melena, Hematochezia, Other Genitourinary: negative: Dysuria, Frequency, Incontinence, Hematuria, Retention , Other Musculoskeletal: negative: Neck Pain, Shoulder Pain, Arm Pain, Back Pain, Hand Pain, Leg Pain, Foot Pain, Other Skin: negative: Rash, Lesions, Luis, Bruising, Other - Medications/Allergies Allergies/Adverse Reactions: Allergies Allergy/AdvReac Type Severity Reaction Status Date / Time No Known Allergies Allergy Verified 09/14/18 06:01 Medications: Current Medications Acetaminophen (Tylenol) 650 mg PO Q4H PRN PRN Reason: Headache/Fever/Mild Pain (1-3) Last Admin: 09/14/18 13:09 Dose: 650 mg Albuterol/Ipratropium (Duoneb) 3 ml NEB [id number] PRN PRN Reason: SOB &/or Wheezing Amlodipine Besylate (Norvasc) 5 mg PO BID [facility] Last Admin: 09/16/18 10:20 Dose: 5 mg Artificial Tears (Tears Naturale) 2 drop EA EYE PRN PRN PRN Reason: Dry Eyes Aspirin (Ecotrin) 81 mg PO DAILY [facility] Last Admin: 09/16/18 10:20 Dose: 81 mg Atorvastatin Calcium (Lipitor) 40 mg PO HS [facility] Calcium Carbonate (Tums) 1,000 mg PO Q4H PRN PRN Reason: Heartburn or Indigestion Carvedilol (Coreg) 6.25 mg PO BID-[facility] Last Admin: 09/16/18 10:20 Dose: 6.25 mg Cyanocobalamin (Vitamin B-12) 2,000 mcg PO DAILY [facility] Last Admin: 09/16/18 10:29 Dose: 2,000 mcg Dextrose/Water (Dextrose 50%) 25 gm SLOW IVP PRN PRN PRN Reason: Hypoglycemia Folic Acid (Folvite) 1 mg PO DAILY [facility] Last Admin: 09/16/18 10:21 Dose: 1 mg Furosemide (Lasix) 40 mg SLOW IVP 0600,1400 [facility] Last Admin: 09/16/18 05:34 Dose: 40 mg Glucagon (Glucagon) 1 mg IM PRN PRN PRN Reason: Hypoglycemia Guaifenesin (Robitussin Sf) 200 mg PO Q4H PRN PRN Reason: Cough Hydralazine HCl (Apresoline) 10 mg SLOW IVP Q2H PRN PRN Reason: Hypertension Last Admin: 09/16/18 07:21 Dose: 10 mg Dextrose/Water (D5w) 1,000 mls @ 0 mls/hr IV .Q0M PRN PRN Reason: Hypoglycemia Insulin Human Lispro (Humalog) 0 units SC .MILD SLIDING SCALE PRN PRN Reason: Mild Correctional Scale Last Admin: 09/15/18 20:32 Dose: 4 unit Lidocaine HCl (Xylocaine Syringe) 50 mg IVP ONE PRN PRN Reason: V-TACH WITH AICD DEPLOYED Stop: 09/16/18 17:38 Lisinopril (Zestril) 10 mg PO BID [facility] Last Admin: 09/16/18 10:21 Dose: 10 mg Loperamide HCl (Imodium) 2 mg PO PRN PRN PRN Reason: Diarrhea/Loose Stools Loratadine (Claritin) 10 mg PO DAILYPRN PRN PRN Reason: Sinus Symptoms Mineral Oil/White Petrolatum (Eucerin Cream) 0 gm TOP BIDPRN PRN PRN Reason: Dry Skin Miscellaneous Information (Communication Order-Pharmacy) 0 each FS 1530 [facility] Last Admin: 09/15/18 20:30 Dose: Not Given Nitroglycerin (Nitro-Bid 2% Ointment) 1 inch TOP 0300,1500 [facility] Last Admin: 09/16/18 03:09 Dose: Not Given Nitroglycerin (Nitrostat) 0.4 mg SL Q5MIN PRN PRN Reason: Chest Pain Ondansetron HCl (Zofran) 4 mg IVP Q6H PRN PRN Reason: Nausea/Vomiting Ondansetron HCl (Zofran Odt) 4 mg PO Q6H PRN PRN Reason: Nausea/Vomiting Senna/Docusate Sodium (Senokot S) 2 tab PO BID PRN PRN Reason: Constipation Sodium Chloride ([place] Nasal [place] 0.65%) 0 ml EA NARE QIDPRN PRN PRN Reason: Nasal Congestion Sodium Chloride (Flush - Normal Saline) 10 ml IVF Q12HR [facility] Last Admin: 09/16/18 10:22 Dose: 10 ml Sodium Chloride (Flush - Normal Saline) 10 ml IVF PRN PRN PRN Reason: Saline Flush Throat Lozenges (Cepastat Lozenges) 1 edgar PO Q2H PRN PRN Reason: Sore Throat Zolpidem Tartrate (Ambien) 5 mg PO HSPRN PRN PRN Reason: Insomnia
[2018-09-16] MEDS: HumaLOG 300 UNITS/3 ML VIAL SC PRN ×3 (11:42→20:55)
--- NOTE | 2018-09-16 11:47 | PRG ---
DATE OF SERVICE: 09/16/2018 SUBJECTIVE: The patient is doing reasonably well, has no complaints. She has been off the BiPAP and the oxygen. She is awaiting a room on telemetry. OBJECTIVE: VITAL SIGNS: Temperature is 98.2, pulse 70, blood pressure 176/99. HEENT: Unremarkable. NECK: No JVD. LUNGS: Completely clear. CARDIAC: S1, S2. Regular. ABDOMEN: Soft. EXTREMITIES: No edema. LABORATORY DATA: I do not see any labs that were done today. ASSESSMENT: 1. Congestive heart failure with pulmonary edema - symptoms, resolved. 2. Diabetes. 3. Anemia. PLAN: 1. She is apparently getting blood transfusion. 2. Await transfer to the floor. 3. Pulmonary status is currently stable. We will follow peripherally. Job ID: [id number]
--- NOTE | 2018-09-16 11:49 | PDOC.CTH ---
Cardiology Progress Note - Subjective No new issues. Currently receiving blood transfusion. - Objective Vital Signs Temp Pulse Pulse Resp BP BP 09/16/18 11:15 98.5 F 68 21 H 133/58 L 09/16/18 10:44 98.8 F 76 16 139/75 09/16/18 10:21 145/77 H 09/16/18 10:20 74 145/77 H 09/16/18 10:17 98.4 F 09/16/18 07:21 71 186/89 H 09/16/18 07:00 98.2 F 09/16/18 03:23 97.3 F L Admit Weight 158 lb 8 oz Weight 153 lb 11.2 oz 09/15/18 09/16/18 09/17/18 06:59 06:59 06:59 Intake Total 960 1140 0 Output Total 1950 1500 Balance -990 -360 0 - Physical Examination General/Neuro: alert & oriented x3, NAD Neck: no JVD present Lungs: CTA, unlabored respirations Heart: RRR Abdomen: NT/ND Extremities: other: (no edema) - Telemetry Telemetry Rhythm: NSR - Labs Result Diagrams: 09/15/18 04:21 09/15/18 04:21 Troponin/CKMB Troponin I 0.378 ng/mL (< 0.028) H* 09/14/18 10:42 - Assessment/Plan 1. Acute on Chronic Systolic HF with EF 45-50% 2. HTN 3. DANIEL 4. Anemia 5. DM type 2 6. COPD 7. Hyperlipidemia 8. Former smoker quit in 2014 9. Bilat pleural effusion PLAN: - Continue medical therapy. - Plan for LHC once Hgb more stable, likely next week. - Agree with up titration of BB and ACEI before CCB.
[2018-09-16] MEDS ORDERED: Enoxaparin Sodium 40 MG/0.4 ML SYRINGE SC SCH (13:00)
[2018-09-16] MEDS: Communication Order-Pharmacy FS SCH (16:39)
[2018-09-16 19:20] LABS: Hemoglobin 9.8 g/dL (12.0-16.0)
[2018-09-16] MEDS: Atorvastatin Calcium 20 MG TAB PO SCH (20:55)
[2018-09-17] MEDS: Nitroglycerin 2% Ointment 1 INCH/1 GM Packet TOP SCH ×3 (03:08→14:17)
[2018-09-17] MEDS: Furosemide 40 MG/4 ML VIAL SLOW IVP SCH ×2 (05:39→14:14)
[2018-09-17] MEDS: hydrALAZINE 20 MG/ML VIAL SLOW IVP PRN (05:48)
[2018-09-17 06:13] LABS: #Basophils 0.1 thou/uL (0.0-0.2); #Eosinphils 0.1 thou/uL (0.0-0.7); #Lymphocytes 2.8 thou/uL (1.20-3.40); #Neutrophils 5.2 thou/uL (1.40-6.50); %Basophils 0.8 % (0.0-1.0); %Eosinophils 0.9 % (0.0-10.0); %Lymphocytes 30.3 % (21.0-51.0); %Monocytes 10.7 % (0.0-10.0); %Neutrophils 57.2 % (42.0-75.0); Hemoglobin 9.9 g/dL (12.0-16.0); MDiff Complete? YES; Macrocytosis SLIGHT = 6-15 cells (100X) (0-5/hpf); Mean Corpuscular HGB CONC 32.6 g/dL (32.0-36.0); Mean Corpuscular Hemoglobin 33.3 pg (27.0-31.0); Mean Platelet Volume 8.4 fL (7.4-10.4); Platelet Count 255 thou/uL (130-400); RBC Distribution Width 19.6 % (11.5-14.5); Red Blood Cell (RBC) Count 2.97 mill/uL (4.20-5.40); White Blood Cell (WBC) Count 9.2 thou/uL (4.8-10.8)
[2018-09-17] MEDS: HumaLOG 300 UNITS/3 ML VIAL SC PRN (06:30)
[2018-09-17] MEDS: Amlodipine 5 MG TAB PO SCH ×2 (08:50→21:28)
[2018-09-17] MEDS: Aspirin 81 mg Enteric Coated Tablet PO SCH (08:50)
[2018-09-17] MEDS: Folic Acid 1 MG TAB PO SCH (08:50)
[2018-09-17] MEDS: Carvedilol 6.25 MG TAB PO SCH ×2 (08:50→16:28)
[2018-09-17] MEDS: Lisinopril 10 MG TAB PO SCH ×2 (08:50→21:29)
[2018-09-17] MEDS: Cyanocobalamin (Vitamin B-12) 1,000 MCG TAB PO SCH (08:51)
[2018-09-17] MEDS ORDERED: Enoxaparin Sodium 40 MG/0.4 ML SYRINGE SC SCH (09:00)
--- NOTE | 2018-09-17 10:15 | PDOC.PN ---
- Subjective Encounter Start Date: 09/17/18 Encounter Start Time: 07:40 Patient seen and examined. No new complaints. No overnight events - Objective Resuscitation Status - Order Detail: 09/14/18 05:26 Resuscitation Status Routine Resuscitation Status: FULL: Full Resuscitation MAR Reviewed: Yes Vital Signs & Weight: Vital Signs (12 hours) Temp Pulse Resp BP BP Pulse Ox 09/17/18 08:50 96 09/17/18 08:09 98.3 F 69 16 129/62 96 09/17/18 05:48 64 180/77 H 09/17/18 04:00 97.8 F 09/17/18 00:05 97.9 F Weight Admit Weight 158 lb 8 oz Weight 152 lb 12.8 oz Most Recent Monitor Data Heart Rate from ECG 69 NIBP 122/60 NIBP BP-Mean 80 Respiration from ECG 16 SpO2 97 I&O: 09/16/18 09/17/18 09/18/18 06:59 06:59 06:59 Intake Total 1140 680 Output Total 1500 1200 Balance -360 -520 Result Diagrams: 09/17/18 05:38 09/15/18 04:21 Additional Labs: Accuchecks 09/17/18 09/16/18 09/16/18 06:07 20:01 16:26 POC Glucose 170 H 205 H 203 H 09/16/18 10:06 POC Glucose 212 H EKG Reviewed by me: Yes Phys Exam - Physical Examination Constitutional: NAD HEENT: PERRLA, moist MMs, sclera anicteric Neck: no JVD, supple Respiratory: no wheezing, no rales, no rhonchi Cardiovascular: RRR, no significant murmur, no rub Gastrointestinal: soft, non-tender, no distention, positive bowel sounds Musculoskeletal: no edema, pulses present Neurological: non-focal, normal sensation Lymphatic: no nodes Psychiatric: normal affect, A&O x 3 Skin: no rash, normal turgor Dx/Plan (1) Acute respiratory failure with hypoxemia Code(s): J96.01 - ACUTE RESPIRATORY FAILURE WITH HYPOXIA Status: Resolved (2) Bilateral pleural effusion Code(s): J90 - PLEURAL EFFUSION, NOT ELSEWHERE CLASSIFIED Status: Acute Comment: Improving (3) Hypokalemia Code(s): E87.6 - HYPOKALEMIA Status: Resolved (4) New onset of congestive heart failure Code(s): I50.9 - HEART FAILURE, UNSPECIFIED Status: Acute Comment: systolic , stage C (5) Pulmonary edema Code(s): J81.1 - CHRONIC PULMONARY EDEMA Status: Resolved Qualifiers: Chronicity: acute Qualified Code(s): J81.0 - Acute pulmonary edema (6) Diabetes type 2, controlled Code(s): E11.9 - TYPE 2 DIABETES MELLITUS WITHOUT COMPLICATIONS Status: Chronic (7) Diverticulosis of colon Code(s): K57.30 - DVRTCLOS OF LG INT W/O PERFORATION OR ABSCESS W/O BLEEDING Status: Chronic (8) Dyslipidemia Code(s): E78.5 - HYPERLIPIDEMIA, UNSPECIFIED Status: Chronic (9) Hypertension Code(s): I10 - ESSENTIAL (PRIMARY) HYPERTENSION Status: Chronic (10) Macrocytic anemia Code(s): D53.9 - NUTRITIONAL ANEMIA, UNSPECIFIED Status: Chronic Comment: with B12 defi (11) Obesity (BMI 30.0-34.9) Code(s): E66.9 - OBESITY, UNSPECIFIED Status: Chronic (12) Vitamin B12 deficiency Code(s): E53.8 - DEFICIENCY OF OTHER SPECIFIED B GROUP VITAMINS Status: Acute - Plan cont current plan of care, plan discussed w/ family * continue lasix for now * will ask if cardiology wants GI for any procedure for her anemia, but her anemia seems related with vitamin B12 defi, her FOBT is negative, will send anemia study tomorrow and repeat labs * if Hb stable and she should be ok to go for cardiac cath if cardio ok, * medication reviewed as below * symptomatic treatment. Review of Systems - Review of Systems ENT: negative: Ear Pain, Ear Discharge, Nose Pain, Nose Discharge, Nose Congestion, Mouth Pain, Mouth Swelling, Throat Pain, Throat Swelling, Other Respiratory: negative: Cough, Dry, Shortness of Breath, Hemoptysis, SOB with Excertion, Pleuritic Pain, Sputum, Wheezing Cardiovascular: negative: chest pain, palpitations, orthopnea, paroxysmal nocturnal dyspnea, edema, light headedness, other Gastrointestinal: negative: Nausea, Vomiting, Abdominal Pain, Diarrhea, Constipation, Melena, Hematochezia, Other Genitourinary: negative: Dysuria, Frequency, Incontinence, Hematuria, Retention , Other Musculoskeletal: negative: Neck Pain, Shoulder Pain, Arm Pain, Back Pain, Hand Pain, Leg Pain, Foot Pain, Other Skin: negative: Rash, Lesions, Luis, Bruising, Other - Medications/Allergies Allergies/Adverse Reactions: Allergies Allergy/AdvReac Type Severity Reaction Status Date / Time No Known Allergies Allergy Verified 09/14/18 06:01 Medications: Current Medications Acetaminophen (Tylenol) 650 mg PO Q4H PRN PRN Reason: Headache/Fever/Mild Pain (1-3) Last Admin: 09/14/18 13:09 Dose: 650 mg Albuterol/Ipratropium (Duoneb) 3 ml NEB [id number] PRN PRN Reason: SOB &/or Wheezing Amlodipine Besylate (Norvasc) 5 mg PO BID [facility] Last Admin: 09/17/18 08:50 Dose: 5 mg Artificial Tears (Tears Naturale) 2 drop EA EYE PRN PRN PRN Reason: Dry Eyes Aspirin (Ecotrin) 81 mg PO DAILY [facility] Last Admin: 09/17/18 08:50 Dose: 81 mg Atorvastatin Calcium (Lipitor) 40 mg PO HS [facility] Last Admin: 09/16/18 20:55 Dose: 40 mg Calcium Carbonate (Tums) 1,000 mg PO Q4H PRN PRN Reason: Heartburn or Indigestion Carvedilol (Coreg) 6.25 mg PO BID-[facility] Last Admin: 09/17/18 08:50 Dose: 6.25 mg Cyanocobalamin (Vitamin B-12) 2,000 mcg PO DAILY [facility] Last Admin: 09/17/18 08:51 Dose: 2,000 mcg Dextrose/Water (Dextrose 50%) 25 gm SLOW IVP PRN PRN PRN Reason: Hypoglycemia Enoxaparin Sodium (Lovenox) 40 mg SC 0900 [facility] Last Admin: 09/17/18 08:51 Dose: 40 mg Folic Acid (Folvite) 1 mg PO DAILY [facility] Last Admin: 09/17/18 08:50 Dose: 1 mg Furosemide (Lasix) 40 mg SLOW IVP 0600,1400 [facility] Last Admin: 09/17/18 05:39 Dose: 40 mg Glucagon (Glucagon) 1 mg IM PRN PRN PRN Reason: Hypoglycemia Guaifenesin (Robitussin Sf) 200 mg PO Q4H PRN PRN Reason: Cough Hydralazine HCl (Apresoline) 10 mg SLOW IVP Q2H PRN PRN Reason: Hypertension Last Admin: 09/17/18 05:48 Dose: 10 mg Dextrose/Water (D5w) 1,000 mls @ 0 mls/hr IV .Q0M PRN PRN Reason: Hypoglycemia Insulin Human Lispro (Humalog) 0 units SC .MILD SLIDING SCALE PRN PRN Reason: Mild Correctional Scale Last Admin: 09/17/18 06:30 Dose: 2 unit Lisinopril (Zestril) 10 mg PO BID [facility] Last Admin: 09/17/18 08:50 Dose: 10 mg Loperamide HCl (Imodium) 2 mg PO PRN PRN PRN Reason: Diarrhea/Loose Stools Loratadine (Claritin) 10 mg PO DAILYPRN PRN PRN Reason: Sinus Symptoms Mineral Oil/White Petrolatum (Eucerin Cream) 0 gm TOP BIDPRN PRN PRN Reason: Dry Skin Miscellaneous Information (Communication Order-Pharmacy) 0 each FS 1530 [facility] Last Admin: 09/16/18 16:39 Dose: Not Given Nitroglycerin (Nitro-Bid 2% Ointment) 1 inch TOP 0300,1500 [facility] Last Admin: 09/17/18 04:30 Dose: 1 inch Nitroglycerin (Nitrostat) 0.4 mg SL Q5MIN PRN PRN Reason: Chest Pain Ondansetron HCl (Zofran) 4 mg IVP Q6H PRN PRN Reason: Nausea/Vomiting Ondansetron HCl (Zofran Odt) 4 mg PO Q6H PRN PRN Reason: Nausea/Vomiting Pantoprazole Sodium (Protonix) 40 mg PO DAILY [facility] Last Admin: 09/17/18 08:51 Dose: 40 mg Senna/Docusate Sodium (Senokot S) 2 tab PO BID PRN PRN Reason: Constipation Sodium Chloride ([place] Nasal [place] 0.65%) 0 ml EA NARE QIDPRN PRN PRN Reason: Nasal Congestion Sodium Chloride (Flush - Normal Saline) 10 ml IVF Q12HR [facility] Last Admin: 09/17/18 08:51 Dose: 10 ml Sodium Chloride (Flush - Normal Saline) 10 ml IVF PRN PRN PRN Reason: Saline Flush Throat Lozenges (Cepastat Lozenges) 1 edgar PO Q2H PRN PRN Reason: Sore Throat Zolpidem Tartrate (Ambien) 5 mg PO HSPRN PRN PRN Reason: Insomnia
--- NOTE | 2018-09-17 16:20 | PDOC.CTH ---
Cardiology Progress Note - Subjective Doing well. No new issues. - Objective Vital Signs Temp Pulse Resp BP BP Pulse Ox 09/17/18 12:07 66 15 123/60 94 L 09/17/18 08:50 96 09/17/18 08:09 98.3 F 69 16 129/62 96 09/17/18 05:48 64 180/77 H Admit Weight 158 lb 8 oz Weight 152 lb 12.8 oz 09/16/18 09/17/18 09/18/18 06:59 06:59 06:59 Intake Total 1140 680 Output Total 1500 1200 Balance -360 -520 - Physical Examination General/Neuro: alert & oriented x3, NAD Neck: no JVD present Lungs: CTA, unlabored respirations Heart: RRR Abdomen: NT/ND Extremities: other: (no edema.) - Telemetry Telemetry Rhythm: NSR - Labs Result Diagrams: 09/17/18 05:38 09/15/18 04:21 Troponin/CKMB Troponin I 0.378 ng/mL (< 0.028) H* 09/14/18 10:42 - Assessment/Plan 1. Acute on Chronic Systolic HF with EF 45-50% 2. HTN 3. DANIEL 4. Anemia 5. DM type 2 6. COPD 7. Hyperlipidemia 8. Former smoker quit in 2014 9. Bilat pleural effusion PLAN: - Continue medical therapy. - [facility] tomorrow. - Agree with up titration of BB and ACEI before CCB. Much better BP control now.
[2018-09-17] MEDS: Communication Order-Pharmacy FS SCH (16:22)
[2018-09-17] MEDS ORDERED: Communication Order-Pharmacy FS SCH (16:30)
[2018-09-17] MEDS: Atorvastatin Calcium 20 MG TAB PO SCH (21:29)
[2018-09-18] MEDS ORDERED: Sodium Chloride 0.9% 1,000 ML IV SCH (00:01)
[2018-09-18 04:04] LABS: #Basophils 0.1 thou/uL (0.0-0.2); #Eosinphils 0.2 thou/uL (0.0-0.7); #Lymphocytes 3.3 thou/uL (1.20-3.40); #Monocytes 1.1 thou/uL (0.11-0.59); #Neutrophils 4.4 thou/uL (1.40-6.50); %Basophils 1.2 % (0.0-1.0); %Eosinophils 1.9 % (0.0-10.0); %Lymphocytes 36.3 % (21.0-51.0); %Monocytes 11.9 % (0.0-10.0); %Neutrophils 48.8 % (42.0-75.0); Hemoglobin 10.5 g/dL (12.0-16.0); Mean Corpuscular Hemoglobin 33.7 pg (27.0-31.0); Mean Platelet Volume 8.5 fL (7.4-10.4); Platelet Count 261 thou/uL (130-400); Red Blood Cell (RBC) Count 3.12 mill/uL (4.20-5.40)
[2018-09-18 04:21] LABS: Anion Gap 12 mmol/L (10-20); BUN (Urea Nitrogen) 25 mg/dL (9.8-20.1); Calc. Creatinine Clearance 43 mL/min (70-130); Calcium 8.7 mg/dL (7.8-10.44); Carbon Dioxide 26 mmol/L (22-29); Chloride 106 mmol/L (98-107); Estimated GFR-MDRD 35; Glucose 161 mg/dL (70-105); Iron 24 ug/dL (50-170); Iron Binding Capacity, Total 208 mcg/dL (265-497); Magnesium 1.8 mg/dL (1.6-2.6); Potassium 3.2 mmol/L (3.5-5.1); Sodium 141 mmol/L (136-145)
[2018-09-18] MEDS: Nitroglycerin 2% Ointment 1 INCH/1 GM Packet TOP SCH ×2 (04:32→14:20)
[2018-09-18] MEDS: Furosemide 40 MG/4 ML VIAL SLOW IVP SCH (05:26)
[2018-09-18] MEDS: Amlodipine 5 MG TAB PO SCH ×2 (05:46→20:11)
[2018-09-18] MEDS: Carvedilol 6.25 MG TAB PO SCH ×2 (05:46→16:04)
[2018-09-18] MEDS: Lisinopril 10 MG TAB PO SCH ×2 (05:46→20:10)
[2018-09-18] MEDS ORDERED: Potassium Chloride 10 MEQ in Premix Bag 1 BAG IVPB SCH (07:45)
[2018-09-18] MEDS ORDERED: hydrALAZINE 20 MG/ML VIAL ONE (07:59)
--- NOTE | 2018-09-18 08:19 | PDOC.CTH ---
Cardiology Progress Note - Objective Vital Signs Temp Pulse Resp BP BP Pulse Ox 09/18/18 05:46 63 178/74 H 09/18/18 03:35 97.9 F 63 16 167/71 H 96 09/17/18 21:29 178/74 H 09/17/18 21:28 65 178/74 H Admit Weight 158 lb 8 oz Weight 152 lb 12.8 oz 09/17/18 09/18/18 09/19/18 06:59 06:59 06:59 Intake Total 680 Output Total 1200 Balance -520 - Physical Examination General/Neuro: alert & oriented x3 Neck: no JVD present Lungs: CTA Heart: RRR Abdomen: NT/ND - Labs Result Diagrams: 09/18/18 03:54 09/18/18 03:54 Troponin/CKMB Troponin I 0.378 ng/mL (< 0.028) H* 09/14/18 10:42 - Assessment/Plan 1. Acute on Chronic Systolic HF with EF 45-50% 2. HTN . Will continue to adjust meds as needed. 3. DANIEL 4. Anemia. Feels better after transfusion. 5. DM type 2 6. COPD 7. Hyperlipidemia 8. Former smoker quit in 2014 9. Bilat pleural effusion 10. NSTEMI II due to demand ischemia. Cath today indicated severe 3 vessel CAD with small vessels. Will ask for the CV surgery opinion. Maybe medical management only.
[2018-09-18] MEDS ORDERED: Sodium Chloride 0.9% 200 ML IV PRN (08:28)
[2018-09-18] MEDS ORDERED: Nitroglycerin 0.4 MG TAB (25 Tab Bottle) SL PRN (08:28)
[2018-09-18] MEDS ORDERED: Acetaminophen/Codeine 30-300mg Tablet PO PRN ×2 (08:28)
[2018-09-18] MEDS: Folic Acid 1 MG TAB PO SCH (09:16)
[2018-09-18] MEDS: Aspirin 81 mg Enteric Coated Tablet PO SCH (09:16)
[2018-09-18] MEDS: Cyanocobalamin (Vitamin B-12) 1,000 MCG TAB PO SCH (09:16)
--- NOTE | 2018-09-18 10:42 | PDOC.PN ---
- Subjective Encounter Start Date: 09/18/18 Encounter Start Time: 07:50 this morning pt had cardiac cath, found with multivessel cad, pt does not have any new complaints - Objective Resuscitation Status - Order Detail: 09/14/18 05:26 Resuscitation Status Routine Resuscitation Status: FULL: Full Resuscitation MAR Reviewed: Yes Vital Signs & Weight: Vital Signs (12 hours) Temp Pulse Resp BP BP Pulse Ox 09/18/18 08:15 98.4 F 66 16 117/56 L 96 09/18/18 05:46 63 178/74 H 09/18/18 03:35 97.9 F 63 16 167/71 H 96 Weight Admit Weight 158 lb 8 oz Weight 152 lb 12.8 oz Most Recent Monitor Data Heart Rate from ECG 69 NIBP 122/60 NIBP BP-Mean 80 Respiration from ECG 16 SpO2 97 I&O: 09/17/18 09/18/18 09/19/18 06:59 06:59 06:59 Intake Total 680 Output Total 1200 Balance -520 Result Diagrams: 09/18/18 03:54 09/18/18 03:54 Additional Labs: Accuchecks 09/18/18 09/17/18 09/17/18 05:24 20:31 17:04 POC Glucose 176 H 259 H 310 H 09/17/18 11:03 POC Glucose 133 H EKG Reviewed by me: Yes Phys Exam - Physical Examination Constitutional: NAD HEENT: PERRLA, moist MMs, sclera anicteric Neck: no JVD, supple Respiratory: no wheezing, no rales, no rhonchi Cardiovascular: RRR, no significant murmur, no rub Gastrointestinal: soft, non-tender, no distention, positive bowel sounds Musculoskeletal: no edema, pulses present Neurological: non-focal, normal sensation Lymphatic: no nodes Psychiatric: normal affect, A&O x 3 Skin: no rash, normal turgor Dx/Plan (1) Acute respiratory failure with hypoxemia Code(s): J96.01 - ACUTE RESPIRATORY FAILURE WITH HYPOXIA Status: Resolved (2) Bilateral pleural effusion Code(s): J90 - PLEURAL EFFUSION, NOT ELSEWHERE CLASSIFIED Status: Acute Comment: Improving (3) Hypokalemia Code(s): E87.6 - HYPOKALEMIA Status: Resolved (4) New onset of congestive heart failure Code(s): I50.9 - HEART FAILURE, UNSPECIFIED Status: Acute Comment: systolic , stage C (5) Pulmonary edema Code(s): J81.1 - CHRONIC PULMONARY EDEMA Status: Resolved Qualifiers: Chronicity: acute Qualified Code(s): J81.0 - Acute pulmonary edema (6) Diabetes type 2, controlled Code(s): E11.9 - TYPE 2 DIABETES MELLITUS WITHOUT COMPLICATIONS Status: Chronic (7) Diverticulosis of colon Code(s): K57.30 - DVRTCLOS OF LG INT W/O PERFORATION OR ABSCESS W/O BLEEDING Status: Chronic (8) Dyslipidemia Code(s): E78.5 - HYPERLIPIDEMIA, UNSPECIFIED Status: Chronic (9) Hypertension Code(s): I10 - ESSENTIAL (PRIMARY) HYPERTENSION Status: Chronic (10) Macrocytic anemia Code(s): D53.9 - NUTRITIONAL ANEMIA, UNSPECIFIED Status: Chronic Comment: with B12 defi (11) Obesity (BMI 30.0-34.9) Code(s): E66.9 - OBESITY, UNSPECIFIED Status: Chronic (12) Vitamin B12 deficiency Code(s): E53.8 - DEFICIENCY OF OTHER SPECIFIED B GROUP VITAMINS Status: Acute (13) DANIEL (acute kidney injury) Code(s): N17.9 - ACUTE KIDNEY FAILURE, UNSPECIFIED Status: Acute (14) Multi-vessel coronary artery stenosis Code(s): I25.10 - ATHSCL HEART DISEASE OF [place] CORONARY ARTERY W/O ANG PCTRS Status: Acute - Plan cont current plan of care, plan discussed w/ family * pt found to have multivessel cad and now cardiovascular surgery consulted * replace potassium * give break for diuresis due to elevated creatinine * continue IVF after cardiac cath * discussed with family * medication reviewed as below * symptomatic treatment. Review of Systems - Review of Systems ENT: negative: Ear Pain, Ear Discharge, Nose Pain, Nose Discharge, Nose Congestion, Mouth Pain, Mouth Swelling, Throat Pain, Throat Swelling, Other Respiratory: negative: Cough, Dry, Shortness of Breath, Hemoptysis, SOB with Excertion, Pleuritic Pain, Sputum, Wheezing Cardiovascular: negative: chest pain, palpitations, orthopnea, paroxysmal nocturnal dyspnea, edema, light headedness, other Gastrointestinal: negative: Nausea, Vomiting, Abdominal Pain, Diarrhea, Constipation, Melena, Hematochezia, Other Genitourinary: negative: Dysuria, Frequency, Incontinence, Hematuria, Retention , Other Musculoskeletal: negative: Neck Pain, Shoulder Pain, Arm Pain, Back Pain, Hand Pain, Leg Pain, Foot Pain, Other Skin: negative: Rash, Lesions, Luis, Bruising, Other - Medications/Allergies Allergies/Adverse Reactions: Allergies Allergy/AdvReac Type Severity Reaction Status Date / Time No Known Allergies Allergy Verified 09/14/18 06:01 Medications: Current Medications Acetaminophen (Tylenol) 650 mg PO Q4H PRN PRN Reason: Headache/Fever/Mild Pain (1-3) Last Admin: 09/14/18 13:09 Dose: 650 mg Acetaminophen/Codeine Phosphate (Tylenol #3) 1 tab PO Q4H PRN PRN Reason: Mild Pain (1-3) Acetaminophen/Codeine Phosphate (Tylenol #3) 2 tab PO Q4H PRN PRN Reason: Moderate Pain (4-6) Albuterol/Ipratropium (Duoneb) 3 ml NEB [id number] PRN PRN Reason: SOB &/or Wheezing Amlodipine Besylate (Norvasc) 5 mg PO BID [facility] Last Admin: 09/18/18 05:46 Dose: 5 mg Artificial Tears (Tears Naturale) 2 drop EA EYE PRN PRN PRN Reason: Dry Eyes Aspirin (Ecotrin) 81 mg PO DAILY [facility] Last Admin: 09/18/18 09:16 Dose: 81 mg Atorvastatin Calcium (Lipitor) 40 mg PO HS [facility] Last Admin: 09/17/18 21:29 Dose: 40 mg Calcium Carbonate (Tums) 1,000 mg PO Q4H PRN PRN Reason: Heartburn or Indigestion Carvedilol (Coreg) 6.25 mg PO BID-[facility] Last Admin: 09/18/18 05:46 Dose: 6.25 mg Cyanocobalamin (Vitamin B-12) 2,000 mcg PO DAILY [facility] Last Admin: 09/18/18 09:16 Dose: 2,000 mcg Dextrose/Water (Dextrose 50%) 25 gm SLOW IVP PRN PRN PRN Reason: Hypoglycemia Folic Acid (Folvite) 1 mg PO DAILY [facility] Last Admin: 09/18/18 09:16 Dose: 1 mg Glucagon (Glucagon) 1 mg IM PRN PRN PRN Reason: Hypoglycemia Guaifenesin (Robitussin Sf) 200 mg PO Q4H PRN PRN Reason: Cough Hydralazine HCl (Apresoline) 10 mg SLOW IVP Q2H PRN PRN Reason: Hypertension Last Admin: 09/17/18 05:48 Dose: 10 mg Dextrose/Water (D5w) 1,000 mls @ 0 mls/hr IV .Q0M PRN PRN Reason: Hypoglycemia Sodium Chloride (Normal Saline 0.9%) 1,000 mls @ 50 mls/hr IV .Q20H [facility] Last Admin: 09/18/18 00:16 Dose: 1,000 mls Sodium Chloride (Normal Saline 0.9%) 200 mls @ 0 mls/hr IV ONE PRN PRN Reason: SBP < 90 Stop: 09/18/18 23:00 Insulin Human Lispro (Humalog) 0 units SC .MILD SLIDING SCALE PRN PRN Reason: Mild Correctional Scale Last Admin: 09/17/18 06:30 Dose: 2 unit Lisinopril (Zestril) 10 mg PO BID [facility] Last Admin: 09/18/18 05:46 Dose: 10 mg Loperamide HCl (Imodium) 2 mg PO PRN PRN PRN Reason: Diarrhea/Loose Stools Loratadine (Claritin) 10 mg PO DAILYPRN PRN PRN Reason: Sinus Symptoms Mineral Oil/White Petrolatum (Eucerin Cream) 0 gm TOP BIDPRN PRN PRN Reason: Dry Skin Miscellaneous Information (Communication Order-Pharmacy) 0 each FS ONE [facility] Stop: 09/18/18 16:31 Nitroglycerin (Nitro-Bid 2% Ointment) 1 inch TOP 0300,1500 [facility] Last Admin: 09/18/18 04:32 Dose: Not Given Nitroglycerin (Nitrostat) 0.4 mg SL Q5MIN PRN PRN Reason: Chest Pain Ondansetron HCl (Zofran) 4 mg IVP Q6H PRN PRN Reason: Nausea/Vomiting Ondansetron HCl (Zofran Odt) 4 mg PO Q6H PRN PRN Reason: Nausea/Vomiting Pantoprazole Sodium (Protonix) 40 mg PO DAILY [facility] Last Admin: 09/18/18 09:16 Dose: 40 mg Senna/Docusate Sodium (Senokot S) 2 tab PO BID PRN PRN Reason: Constipation Sodium Chloride ([place] Nasal [place] 0.65%) 0 ml EA NARE QIDPRN PRN PRN Reason: Nasal Congestion Sodium Chloride (Flush - Normal Saline) 10 ml IVF Q12HR [facility] Last Admin: 09/18/18 09:18 Dose: Not Given Sodium Chloride (Flush - Normal Saline) 10 ml IVF PRN PRN PRN Reason: Saline Flush Throat Lozenges (Cepastat Lozenges) 1 edgar PO Q2H PRN PRN Reason: Sore Throat Zolpidem Tartrate (Ambien) 5 mg PO HSPRN PRN PRN Reason: Insomnia
[2018-09-18] MEDS ORDERED: Iopamidol 370 76% 100 ML VIAL ONE (11:06)
[2018-09-18] MEDS: HumaLOG 300 UNITS/3 ML VIAL SC PRN (16:46)
--- NOTE | 2018-09-18 16:53 | CON ---
DATE OF CONSULTATION: 09/18/2018 REASON FOR CONSULTATION: Evaluate the patient for coronary artery bypass grafting. HISTORY OF PRESENT ILLNESS: Dr. Arita asked me to see Ms. Hogan post cath today. She is a 58-year-old woman with longstanding diabetes, hypertension, dyslipidemia, and coronary artery disease. She is a former tobacco user. She presented to the emergency department with shortness of breath and was admitted. She had some degree of chest pain along with her shortness of breath. She was admitted, underwent appropriate workup including cath today. Her catheterization shows severe diffusely diseased diminutive coronary arteries. PAST MEDICAL HISTORY: 1. Coronary artery disease. 2. COPD. 3. Hypertension. 4. Dyslipidemia. 5. Diabetes mellitus. 6. Former tobacco abuse. PAST SURGICAL HISTORY: 1. Cholecystectomy. 2. Appendectomy. SOCIAL HISTORY: She is . She recently moved back to [place] from [place]. She has stopped smoking 4 years ago. MEDICATIONS: Noted. ALLERGIES: NONE. REVIEW OF SYSTEMS: Ten-point review of systems is performed and is negative except as above. PHYSICAL EXAMINATION: GENERAL: This is a diminutive woman, resting comfortably in bed. VITAL SIGNS: Her height is 4 feet and 9 inches, weight is 150 pounds, and BSA is 1.67. Temperature is 98, pulse is 69 and regular, and blood pressure 134/68. NECK: Supple without bruit. CHEST: Clear bilaterally. HEART: Heart rhythm is regular. ABDOMEN: Soft and nontender. EXTREMITIES: No edema. VASCULAR: She has palpable carotid, radial, and femoral pulses bilaterally. ASSESSMENT AND PLAN: This is a very pleasant woman with severe diffusely diseased small coronary arteries. I am concerned that with surgery, we would be very disappointed in the quality of her arteries. I do not think that we would significantly impact her life expectancy with coronary artery bypass grafting at this point. I have recommended medical therapy along with Dr. Arita. Job ID: [id number]
[2018-09-18] MEDS: Atorvastatin Calcium 20 MG TAB PO SCH (20:11)
[2018-09-19] MEDS: Nitroglycerin 2% Ointment 1 INCH/1 GM Packet TOP SCH ×2 (04:37→14:04)
[2018-09-19 06:29] LABS: Anion Gap 11 mmol/L (10-20); BUN (Urea Nitrogen) 20 mg/dL (9.8-20.1); Calc. Creatinine Clearance 50 mL/min (70-130); Calcium 8.4 mg/dL (7.8-10.44); Carbon Dioxide 25 mmol/L (22-29); Chloride 107 mmol/L (98-107); Estimated GFR-MDRD 41; Glucose 141 mg/dL (70-105); Potassium 3.2 mmol/L (3.5-5.1); Sodium 140 mmol/L (136-145)
[2018-09-19] MEDS ORDERED: Potassium Chloride 20 MEQ TAB PO SCH (06:45)
[2018-09-19] MEDS: Carvedilol 6.25 MG TAB PO SCH ×2 (08:25→16:41)
[2018-09-19] MEDS: Amlodipine 5 MG TAB PO SCH (08:26)
[2018-09-19] MEDS: Cyanocobalamin (Vitamin B-12) 1,000 MCG TAB PO SCH (08:26)
[2018-09-19] MEDS: Aspirin 81 mg Enteric Coated Tablet PO SCH (08:26)
[2018-09-19] MEDS: Lisinopril 10 MG TAB PO SCH (08:27)
[2018-09-19] MEDS: Folic Acid 1 MG TAB PO SCH (08:27)
--- NOTE | 2018-09-19 10:53 | DIS ---
DATE OF ADMISSION: 09/14/2018 DATE OF DISCHARGE: 09/19/2018 PRIMARY CARE PHYSICIAN: [facility] [place] Call Admission. DISCHARGE DISPOSITION: Home. PRIMARY DISCHARGE DIAGNOSES: 1. New-onset systolic congestive heart failure, stage C. 2. Acute respiratory failure with hypoxia, improved. 3. Acute pulmonary edema with bilateral pleural effusion, improved; hypokalemia, corrected; acute kidney injury, improving; vitamin B12 deficiency; macrocytic anemia; new diagnosis of multivessel coronary artery disease. 4. [id number] myocardial infarction, type 2. SECONDARY DISCHARGE DIAGNOSES: Hypertension, dyslipidemia, diverticulosis of colon, obesity with BMI of 33, and diabetes, type 2. PRIMARY PROCEDURE/OPERATION: Cardiac catheterization was performed by Dr. Arita and found with diffuse small-vessel disease, severe 3-vessel CAD, but small vessels. RADIOLOGICAL INVESTIGATION: Abdomen and pelvis CT scan showed diverticulosis of colon. CT angiography showed pulmonary edema and bilateral pleural effusion. Chest x-ray showed pulmonary congestion and bilateral pleural effusion. Echocardiography showed EF of 45% to 50%. SIGNIFICANT LABORATORY DATA: WBC 9.0, hemoglobin 10.5, and platelet 261. INR 1.0. Sodium 140, potassium 3.2, BUN 20, creatinine 1.32, and calcium 8.4. Vitamin B12 less than 109. Folate level 13. TSH 2.5. LDL 196. BNP 355. Troponin 0.306. DISCHARGE MEDICATIONS: 1. Amlodipine 5 mg p.o. b.i.d. 2. Aspirin 81 mg p.o. daily. 3. Lipitor 40 mg p.o. daily. 4. Coreg 6.25 mg p.o. b.i.d. 5. Vitamin B12 2000 mcg p.o. daily. 6. Pepcid 20 mg p.o. b.i.d. 7. Folic acid 1 mg p.o. daily. 8. Lasix 40 mg p.o. daily. 9. Lisinopril 10 mg p.o. b.i.d. 10. Potassium chloride 20 mEq p.o. daily. 11. Plavix 75 mg po daily 12. Metformin 1000 mg po bid CONTRAINDICATION: None. CODE STATUS: Full code. INPATIENT POLICY LOAN CALCULATOR: Dr. Arita was following while in hospital. Pulmonary group was following while in hospital. Dr. Daryl Lawson was consulted while in hospital. TEST RESULT PENDING ON DISCHARGE: None. ALLERGIES: NO KNOWN DRUG ALLERGIES. DISCHARGE PLAN: Post hospital, the patient is instructed to follow up with [facility], Dr. Arita, primary care physician as instructed. HOSPITAL COURSE: This is a 58-year-old female with above-mentioned medical problem, who was admitted by Dr. Friedman. Please see his H and P for further details. The patient was having increasing shortness of breath. The patient was having high blood pressure. The patient was found with pulmonary edema and bilateral pleural effusions. She was having elevated BNP. She was found with a new-onset congestive heart failure. A subsequent echocardiography showed systolic heart failure. The patient was treated with Lasix and appropriate blood pressure control. The patient was initially having hypoxic respiratory failure, that was improved by the time of discharge. Her effusion and congestion significantly improved clinically. The patient was able to function by herself without any shortness of breath or angina. She was also having [id number] CT, type 2, from demand ischemia. Cardiology decided to do cardiac cath. Before cardiac cath, we gave her 1 unit of blood transfusion for symptomatic anemia. Regarding anemia, we checked B12 because of macrocytosis and that was found with B12 deficiency, which was replaced while in hospital. Subsequently, the patient underwent cardiac catheterization, which showed 3- vessel CAD, but vessels were small. Cardiovascular surgeon evaluated this patient and they recommended that bypass will not be more effective for this particular patient and they recommended medical therapy. The patient was optimized with blood pressure medication. We also started statin therapy for elevated cholesterol. Above-mentioned medication prescription given. She also had electrolyte replacement with potassium replacement while in hospital. She had mild acute kidney injury from diuresis, that was also improving. I have seen and examined the patient at bedside today. Heart failure education given. Fluid restriction discussion given. Dietary education given. Plan of care discussed with the family member at bedside today. If Cardiology okay, then the patient is medically stable for discharge. Job ID: [id number] [facility]
--- NOTE | 2018-09-19 11:15 | PDOC.CTH ---
Cardiology Progress Note - Subjective Pt. seen and eval. no new overnight events.She denies chest pain. - Objective Vital Signs Temp Pulse Resp BP BP Pulse Ox 09/19/18 08:27 153/67 H 09/19/18 08:26 66 09/19/18 08:25 153/57 H 09/19/18 06:50 97.8 F 66 14 153/67 H 96 09/19/18 03:14 97.7 F 63 15 149/65 H 96 Admit Weight 158 lb 8 oz Weight 152 lb 12.8 oz 09/18/18 09/19/18 09/20/18 06:59 06:59 06:59 Intake Total 1741 Output Total 1450 Balance 291 - Physical Examination General/Neuro: alert & oriented x3 Neck: carotid US brisk, no JVD present Lungs: unlabored respirations Heart: RRR Abdomen: soft - Telemetry Telemetry Rhythm: NSR. - Labs Result Diagrams: 09/18/18 03:54 09/19/18 05:37 Troponin/CKMB Troponin I 0.378 ng/mL (< 0.028) H* 09/14/18 10:42 - Assessment/Plan 1. Acute on Chronic Systolic HF with EF 45-50% 2. HTN . Will continue to adjust meds as needed. 3. DANIEL 4. Anemia. Feels better after transfusion. 5. DM type 2 6. COPD 7. Hyperlipidemia 8. Former smoker quit in 2014 9. Bilat pleural effusion 10. NSTEMI II due to demand ischemia. Cath yesterday indicated severe 3 vessel CAD with small vessels. CV surgery feels that medical management is best.She has very small vessels that are diffusely diseased. I will add plavix.
[2018-09-19] MEDS: HumaLOG 300 UNITS/3 ML VIAL SC PRN ×2 (11:23→16:42)
--- NOTE | 2018-09-19 12:34 | PDOC.PN ---
- Subjective Encounter Start Date: 09/19/18 Encounter Start Time: 10:10 Patient seen and examined. No new complaints. No overnight events - Objective Resuscitation Status - Order Detail: 09/14/18 05:26 Resuscitation Status Routine Resuscitation Status: FULL: Full Resuscitation MAR Reviewed: Yes Vital Signs & Weight: Vital Signs (12 hours) Temp Pulse Resp BP BP Pulse Ox 09/19/18 11:15 98.2 F 60 14 128/58 L 95 09/19/18 08:27 153/67 H 09/19/18 08:26 66 09/19/18 08:25 153/57 H 09/19/18 06:50 97.8 F 66 14 153/67 H 96 09/19/18 03:14 97.7 F 63 15 149/65 H 96 Weight Admit Weight 158 lb 8 oz Weight 152 lb 12.8 oz Most Recent Monitor Data Heart Rate from ECG 69 NIBP 122/60 NIBP BP-Mean 80 Respiration from ECG 16 SpO2 97 I&O: 09/18/18 09/19/18 09/20/18 06:59 06:59 06:59 Intake Total 1741 Output Total 1450 Balance 291 Result Diagrams: 09/18/18 03:54 09/19/18 05:37 Additional Labs: Accuchecks 09/19/18 09/19/18 09/18/18 11:09 05:28 20:21 POC Glucose 214 H 163 H 115 H 09/18/18 16:34 POC Glucose 335 H EKG Reviewed by me: Yes Phys Exam - Physical Examination Constitutional: NAD HEENT: PERRLA, moist MMs, sclera anicteric Neck: no JVD, supple Respiratory: no wheezing, no rales, no rhonchi Cardiovascular: RRR, no significant murmur, no rub Gastrointestinal: soft, non-tender, no distention, positive bowel sounds Musculoskeletal: no edema, pulses present Neurological: non-focal, normal sensation, moves all 4 limbs Lymphatic: no nodes Psychiatric: normal affect, A&O x 3 Skin: no rash, normal turgor Dx/Plan (1) Acute respiratory failure with hypoxemia Code(s): J96.01 - ACUTE RESPIRATORY FAILURE WITH HYPOXIA Status: Resolved (2) Bilateral pleural effusion Code(s): J90 - PLEURAL EFFUSION, NOT ELSEWHERE CLASSIFIED Status: Acute Comment: Improving (3) Hypokalemia Code(s): E87.6 - HYPOKALEMIA Status: Resolved (4) New onset of congestive heart failure Code(s): I50.9 - HEART FAILURE, UNSPECIFIED Status: Acute Comment: systolic , stage C (5) Pulmonary edema Code(s): J81.1 - CHRONIC PULMONARY EDEMA Status: Resolved Qualifiers: Chronicity: acute Qualified Code(s): J81.0 - Acute pulmonary edema (6) Diabetes type 2, controlled Code(s): E11.9 - TYPE 2 DIABETES MELLITUS WITHOUT COMPLICATIONS Status: Chronic (7) Diverticulosis of colon Code(s): K57.30 - DVRTCLOS OF LG INT W/O PERFORATION OR ABSCESS W/O BLEEDING Status: Chronic (8) Dyslipidemia Code(s): E78.5 - HYPERLIPIDEMIA, UNSPECIFIED Status: Chronic (9) Hypertension Code(s): I10 - ESSENTIAL (PRIMARY) HYPERTENSION Status: Chronic (10) Macrocytic anemia Code(s): D53.9 - NUTRITIONAL ANEMIA, UNSPECIFIED Status: Chronic Comment: with B12 defi (11) Obesity (BMI 30.0-34.9) Code(s): E66.9 - OBESITY, UNSPECIFIED Status: Chronic (12) Vitamin B12 deficiency Code(s): E53.8 - DEFICIENCY OF OTHER SPECIFIED B GROUP VITAMINS Status: Acute (13) DANIEL (acute kidney injury) Code(s): N17.9 - ACUTE KIDNEY FAILURE, UNSPECIFIED Status: Acute (14) Multi-vessel coronary artery stenosis Code(s): I25.10 - ATHSCL HEART DISEASE OF [place] CORONARY ARTERY W/O ANG PCTRS Status: Acute - Plan cont current plan of care, plan discussed w/ family * medication reviewed as below * symptomatic treatment * see discharge gil. Review of Systems - Review of Systems ENT: negative: Ear Pain, Ear Discharge, Nose Pain, Nose Discharge, Nose Congestion, Mouth Pain, Mouth Swelling, Throat Pain, Throat Swelling, Other Respiratory: negative: Cough, Dry, Shortness of Breath, Hemoptysis, SOB with Excertion, Pleuritic Pain, Sputum, Wheezing Cardiovascular: negative: chest pain, palpitations, orthopnea, paroxysmal nocturnal dyspnea, edema, light headedness, other Gastrointestinal: negative: Nausea, Vomiting, Abdominal Pain, Diarrhea, Constipation, Melena, Hematochezia, Other Genitourinary: negative: Dysuria, Frequency, Incontinence, Hematuria, Retention , Other Musculoskeletal: negative: Neck Pain, Shoulder Pain, Arm Pain, Back Pain, Hand Pain, Leg Pain, Foot Pain, Other - Medications/Allergies Allergies/Adverse Reactions: Allergies Allergy/AdvReac Type Severity Reaction Status Date / Time No Known Allergies Allergy Verified 09/14/18 06:01 Medications: Current Medications Acetaminophen (Tylenol) 650 mg PO Q4H PRN PRN Reason: Headache/Fever/Mild Pain (1-3) Last Admin: 09/14/18 13:09 Dose: 650 mg Acetaminophen/Codeine Phosphate (Tylenol #3) 1 tab PO Q4H PRN PRN Reason: Mild Pain (1-3) Acetaminophen/Codeine Phosphate (Tylenol #3) 2 tab PO Q4H PRN PRN Reason: Moderate Pain (4-6) Albuterol/Ipratropium (Duoneb) 3 ml NEB [id number] PRN PRN Reason: SOB &/or Wheezing Amlodipine Besylate (Norvasc) 5 mg PO BID [facility] Last Admin: 09/19/18 08:26 Dose: 5 mg Artificial Tears (Tears Naturale) 2 drop EA EYE PRN PRN PRN Reason: Dry Eyes Aspirin (Ecotrin) 81 mg PO DAILY [facility] Last Admin: 09/19/18 08:26 Dose: 81 mg Atorvastatin Calcium (Lipitor) 40 mg PO [facility] Last Admin: 09/18/18 20:11 Dose: 40 mg Calcium Carbonate (Tums) 1,000 mg PO Q4H PRN PRN Reason: Heartburn or Indigestion Carvedilol (Coreg) 6.25 mg PO BID[facility] Last Admin: 09/19/18 08:25 Dose: 6.25 mg Clopidogrel Bisulfate (Plavix) 75 mg PO DAILY [facility] Cyanocobalamin (Vitamin B-12) 2,000 mcg PO DAILY [facility] Last Admin: 09/19/18 08:26 Dose: 2,000 mcg Dextrose/Water (Dextrose 50%) 25 gm SLOW IVP PRN PRN PRN Reason: Hypoglycemia Folic Acid (Folvite) 1 mg PO DAILY [facility] Last Admin: 09/19/18 08:27 Dose: 1 mg Glucagon (Glucagon) 1 mg IM PRN PRN PRN Reason: Hypoglycemia Guaifenesin (Robitussin Sf) 200 mg PO Q4H PRN PRN Reason: Cough Hydralazine HCl (Apresoline) 10 mg SLOW IVP Q2H PRN PRN Reason: Hypertension Last Admin: 09/17/18 05:48 Dose: 10 mg Dextrose/Water (D5w) 1,000 mls @ 0 mls/hr IV .Q0M PRN PRN Reason: Hypoglycemia Insulin Human Lispro (Humalog) 0 units SC .MILD SLIDING SCALE PRN PRN Reason: Mild Correctional Scale Last Admin: 09/19/18 11:23 Dose: 3 unit Lisinopril (Zestril) 10 mg PO BID [facility] Last Admin: 09/19/18 08:27 Dose: 10 mg Loperamide HCl (Imodium) 2 mg PO PRN PRN PRN Reason: Diarrhea/Loose Stools Loratadine (Claritin) 10 mg PO DAILYPRN PRN PRN Reason: Sinus Symptoms Mineral Oil/White Petrolatum (Eucerin Cream) 0 gm TOP BIDPRN PRN PRN Reason: Dry Skin Nitroglycerin (Nitro-Bid 2% Ointment) 1 inch TOP 0300,1500 [facility] Last Admin: 09/19/18 04:37 Dose: Not Given Nitroglycerin (Nitrostat) 0.4 mg SL Q5MIN PRN PRN Reason: Chest Pain Ondansetron HCl (Zofran) 4 mg IVP Q6H PRN PRN Reason: Nausea/Vomiting Ondansetron HCl (Zofran Odt) 4 mg PO Q6H PRN PRN Reason: Nausea/Vomiting Pantoprazole Sodium (Protonix) 40 mg PO DAILY [facility] Last Admin: 09/19/18 08:27 Dose: 40 mg Senna/Docusate Sodium (Senokot S) 2 tab PO BID PRN PRN Reason: Constipation Sodium Chloride ([place] Nasal [place] 0.65%) 0 ml EA NARE QIDPRN PRN PRN Reason: Nasal Congestion Sodium Chloride (Flush - Normal Saline) 10 ml IVF Q12HR [facility] Last Admin: 09/19/18 08:33 Dose: 10 ml Sodium Chloride (Flush - Normal Saline) 10 ml IVF PRN PRN PRN Reason: Saline Flush Throat Lozenges (Cepastat Lozenges) 1 edgar PO Q2H PRN PRN Reason: Sore Throat Zolpidem Tartrate (Ambien) 5 mg PO HSPRN PRN PRN Reason: Insomnia
[2018-09-19] MEDS ORDERED: Clopidogrel Bisulfate 75 MG TAB PO SCH (13:15)
--- NOTE | 2018-09-19 13:50 | PDOC.CTH ---
Cardiology Progress Note - Subjective The pt seen and examined. No overnight events. No cardiac complaints. - Objective Vital Signs Temp Pulse Resp BP BP Pulse Ox 09/19/18 11:15 98.2 F 60 14 128/58 L 95 09/19/18 08:27 153/67 H 09/19/18 08:26 66 09/19/18 08:25 153/57 H 09/19/18 06:50 97.8 F 66 14 153/67 H 96 09/19/18 03:14 97.7 F 63 15 149/65 H 96 Admit Weight 158 lb 8 oz Weight 152 lb 12.8 oz 09/18/18 09/19/18 09/20/18 06:59 06:59 06:59 Intake Total 1741 Output Total 1450 Balance 291 - Physical Examination General/Neuro: alert & oriented x3 Neck: no JVD present Lungs: CTA Heart: RRR Abdomen: soft Extremities: other: (No edema; Rt fem soft with no hematoma or mass.) - Telemetry Telemetry Rhythm: SR - Labs Result Diagrams: 09/18/18 03:54 09/19/18 05:37 Troponin/CKMB Troponin I 0.378 ng/mL (< 0.028) H* 09/14/18 10:42 - Assessment/Plan 1. 3V CAD with very small vassals - asymptomatic. Medical tx only. On Bblocker , TORY, ASA, Plavix 2. Acute on Chronic Systolic HF with EF 545-50% - stable with Lasix 40mg IV BID , Coreg 3.125mg BID, and Lisinopril 5mg BID 3. HTN - stable with current meds 4. DANIEL - unchanged; may start NS IV prior to Cath? 5. Anemia - 6. DM type 2 - 7. COPD - stable with 2LNC 8. Hyperlipidemia - On statin 9. Ex-smoker quit in 2014 - . Bilat pleural effusion - On Lasix MAR reviewed * Echo on 09/14/2018 with EF 45-50%, mod-severe LA, mild MR and TR, and Lt plural effusion * The pt is stable to d/c home. The pt will f/u with Dr Arita' office within 2wks. See my note from earlier today. gjm Review of Systems - Review of Systems Constitutional: reports: no symptoms reported EENTM: reports: no symptoms reported Respiratory: reports: no symptoms reported Cardiac (ROS): reports: no symptoms reported ABD/GI: reports: no symptoms reported : reports: no symptoms reported Musculoskeletal: reports: no symptoms reported
[2018-09-19 16:28] VITALS: BP 133/62; TEMP 97.8
[2018-09-20] MEDS ORDERED: Clopidogrel Bisulfate 75 MG TAB PO SCH (09:00)
== END 2018-09-19 16:55 | disposition home or self-care (01) | DRG 280 ==
LOC: ERS 02:35 → IMCU/EMU 05:24 → 2NO 09-17 08:11
PROVIDERS: ADMIT Internal Medicine; ATTEND Internal Medicine
PROC: 4A023N7 Measurement of Cardiac Sampling and Pressure, Left Heart, Percutaneous Approach (ICD-10-PCS; principal; 2018-09-18)
PROC: B2111ZZ Fluoroscopy of Multiple Coronary Arteries using Low Osmolar Contrast (ICD-10-PCS; 2018-09-18)
PROC: B2151ZZ Fluoroscopy of Left Heart using Low Osmolar Contrast (ICD-10-PCS; 2018-09-18)
DX: I11.0 Hypertensive heart disease with heart failure (principal); I21.A1 Myocardial infarction type 2; J96.01 Acute respiratory failure with hypoxia; N17.9 Acute kidney failure, unspecified; I50.23 Acute on chronic systolic (congestive) heart failure; E87.6 Hypokalemia; E78.00 Pure hypercholesterolemia, unspecified; I25.10 Atherosclerotic heart disease of native coronary artery without angina pectoris; E53.8 Deficiency of other specified B group vitamins; D53.9 Nutritional anemia, unspecified; E11.9 Type 2 diabetes mellitus without complications; K57.30 Diverticulosis of large intestine without perforation or abscess without bleeding; E66.9 Obesity, unspecified; J44.9 Chronic obstructive pulmonary disease, unspecified; Z68.33 Body mass index [BMI] 33.0-33.9, adult; Z87.891 Personal history of nicotine dependence; Z90.49 Acquired absence of other specified parts of digestive tract; Z79.4 Long term (current) use of insulin; Z79.82 Long term (current) use of aspirin; Z79.899 Other long term (current) drug therapy
CPT/HCPCS: 36415; 36416; 36430; 71045; 71275; 74177; 80048; 80053; 80061; 82274; 82607; 82728; 82746; 82805; 83036; 83540; 83550; 83690; 83735; 83880; 84443; 84484; 84550; 85014; 85018; 85025; 85610; 85730; 86850; 86900; 86901; 93005; 93306; 93458; 93798; 94660; 96365; 96375; C1769; J0360; J1610; J1644; J1650; J1940; J3420; J3475; J3480; J7050; P9016; Q9966; Q9967

== ENCOUNTER 2021-02-10 08:43 | Outpatient (CLI) | payer OTHER | END 2021-02-10 08:44 | disposition home or self-care (01) | LOC: BICMAMMO 08:43 | PROVIDERS: ATTEND Nurse Practitioner Family | DX: Z12.31 Encounter for screening mammogram for malignant neoplasm of breast (principal); N64.89 Other specified disorders of breast | CPT/HCPCS: 77067 ==

== ENCOUNTER 2021-04-03 09:53 | Outpatient (CLI) | payer OTHER | END 2021-04-03 09:54 | disposition home or self-care (01) | LOC: BICMAMMO 09:53 | PROVIDERS: ATTEND Nurse Practitioner Family | DX: R92.8 Other abnormal and inconclusive findings on diagnostic imaging of breast (principal) | CPT/HCPCS: G0279 ==

== ENCOUNTER 2021-04-30 09:07 | Outpatient (CLI) | payer OTHER | END 2021-04-30 09:08 | disposition home or self-care (01) | LOC: BICULT 09:07 | PROVIDERS: ATTEND Internal Medicine Nephrology | DX: I12.9 Hypertensive chronic kidney disease with stage 1 through stage 4 chronic kidney disease, or unspecified chronic kidney disease (principal); N18.30 Chronic kidney disease, stage 3 unspecified | CPT/HCPCS: 76770 ==

== ENCOUNTER 2022-07-28 12:21 | Outpatient (CLI) | payer OTHER | END 2022-07-28 12:22 | disposition home or self-care (01) | LOC: BICMAMMO 12:21 | PROVIDERS: ATTEND Nurse Practitioner Family | DX: Z12.31 Encounter for screening mammogram for malignant neoplasm of breast (principal); R92.8 Other abnormal and inconclusive findings on diagnostic imaging of breast | CPT/HCPCS: 77067 ==

== ENCOUNTER 2022-08-03 14:45 | Outpatient (CLI) | payer OTHER | END 2022-08-03 14:46 | disposition home or self-care (01) | LOC: BICMAMMO 14:45 | PROVIDERS: ATTEND Nurse Practitioner Family | DX: N64.89 Other specified disorders of breast (principal) | CPT/HCPCS: G0279 ==